=== PATIENT | male | born 1930 | race Hispanic/Latino ===

== ENCOUNTER 2017-06-19 18:50 | Emergency (ER) | payer MEDICARE ==
[2017-06-19] MEDS ORDERED: Proparacaine 0.5% Opth 15 ML BOT ONE (19:22)
[2017-06-19] MEDS ORDERED: Fluorescein Opthalmic Strip ONE (19:22)
--- OUTSIDE RECORDS SUMMARY | 2017-06-20 23:36 | XMS | Clinical Summary ---
:1930 Author Organization [facility] Address [address] [place] [address] Phone Care Team Providers Name Role Phone , Primary Care Provider Unavailable Allergies Not on File Current Medications Not on file Active Problems Not on file Social History Tobacco Use Types Packs/Day Years Used Date Never Assessed Sex Assigned at Date Recorded Not on file Last Filed Vital Signs Not on file Plan of Treatment Not on file Results Not on filefrom Last 3 Months
== END 2017-06-19 19:41 | disposition home or self-care (01) ==
LOC: ERS 18:50
DX: S00.83XA Contusion of other part of head, initial encounter (principal); H11.32 Conjunctival hemorrhage, left eye; I11.0 Hypertensive heart disease with heart failure; I50.9 Heart failure, unspecified; E11.9 Type 2 diabetes mellitus without complications; E78.5 Hyperlipidemia, unspecified; Z79.84 Long term (current) use of oral hypoglycemic drugs; Z79.82 Long term (current) use of aspirin; Z79.899 Other long term (current) drug therapy; X58.XXXA Exposure to other specified factors, initial encounter
CPT/HCPCS: 99282

== ENCOUNTER 2017-07-10 04:00 | Inpatient (IN) | payer MEDICARE ==
--- OUTSIDE RECORDS SUMMARY | 2017-07-10 04:03 | XMS | Clinical Summary ---
:1930 Author Organization [facility] Address [address] [place] [address] Phone Care Team Providers Name Role Phone [...]
[2017-07-10 04:56] LABS: #Lymphocytes 1.1 thou/uL (1.20-3.40); #Monocytes 0.4 thou/uL (0.11-0.59); #Neutrophils 5.4 thou/uL (1.40-6.50); %Basophils 0.7 % (0.0-1.0); %Eosinophils 0.6 % (0.0-10.0); %Lymphocytes 15.1 % (21.0-51.0); %Monocytes 6.1 % (0.0-10.0); Hematocrit 35.1 % (42.0-52.0); Mean Platelet Volume 7.7 fL (7.4-10.4); Red Blood Cell (RBC) Count 3.54 mill/uL (4.70-6.10)
[2017-07-10 05:01] LABS: Prothrombin Time 14.3 SEC (12.0-14.7)
[2017-07-10 05:14] LABS: Lactic Acid - Sepsis 1.3 mmol/L (0.5-2.2)
[2017-07-10 05:21] LABS: ALT (SGPT) 19 U/L (8-55); AST (SGOT) 25 U/L (5-34); Alkaline Phosphatase 73 U/L (40-150); Anion Gap 11 mmol/L (10-20); BUN (Urea Nitrogen) 21 mg/dL (8.4-25.7); Bilirubin, Total 0.4 mg/dL (0.2-1.2); CK (CPK) 98 U/L (30-200); Calc. Creatinine Clearance 0 mL/min (70-130); Calcium 8.3 mg/dL (7.8-10.44); Carbon Dioxide 25 mmol/L (23-31); Chloride 105 mmol/L (98-107); Estimated GFR-MDRD Greater than 90; Globulin 3.3 g/dL (2.4-3.5); Magnesium 1.2 mg/dL (1.6-2.6); Protein, Total 6.1 g/dL (5.8-8.1)
[2017-07-10 05:24] LABS: Troponin I Less than 0.010 ng/mL (< 0.028)
[2017-07-10 05:33] LABS: Anion Gap 7 mmol/L (-14-95); T. Carbon Dioxide 25.9 mmol/L (1.0-85.0); pH (Venous) 7.375 (7.35-7.45); vO2 Saturation-calc 95.7 % (0.0-100.0)
[2017-07-10 05:39] LABS: Bilirubin Negative (Negative); Blood, Urine Negative (Negative); Glucose, Urine (Dipstick) Negative (Negative); Ketone, Urine Negative (Negative); Nitrite Negative (Negative); Protein, Urine (Dipstick) 30 mg/dL (Neg-Trace); Urobilinogen 0.2 mg/dL (0.2-1.0)
[2017-07-10 05:41] LABS: Bacteria/HPF None Seen HPF (None Seen); Hyaline Casts/LPF 0-3 HYALINE CAST LPF (0-3 Hyaline); RBC/HPF 0-3 HPF (0-3); Squamous Epithelial None Seen HPF (0-3); WBC/HPF 0-3 HPF (0-3)
[2017-07-10] MEDS ORDERED: Nitroglycerin 0.4 MG TAB (25 Tab Bottle) ONE (05:47)
[2017-07-10] MEDS ORDERED: Furosemide 40 MG/4 ML VIAL ONE (05:47)
[2017-07-10 05:50] LABS: Amphetamine Not Detected (NotDetected); Methadone Not Detected (NotDetected); Methamphetamine Not Detected (NotDetected)
[2017-07-10] MEDS ORDERED: Magnesium Sulfate 2 GM/100 ML BAG ONE (06:50)
[2017-07-10] MEDS ORDERED: Dextrose 50% Abboject 50 ML SYRINGE SLOW IVP PRN (07:29)
[2017-07-10] MEDS ORDERED: Dextrose 5% in Water 1,000 ML IV PRN (07:29)
--- NOTE | 2017-07-10 07:54 | CT ---
PRELIMINARY REPORT/[facility]/EMERGENCY AFTER HOURS PROCEDURE: EXAM: CT Head Without Intravenous Contrast EXAM DATE/TIME: 07/10/2017 4:53 AM CLINICAL HISTORY: 87 years old, male; Signs and symptoms; Altered mental status/memory loss; Confusion or disorientatio n; Patient HX: AMS TECHNIQUE: Axial computed tomography images of the head/brain without intravenous contrast. COMPARISON: No relevant prior studies available. FINDINGS: Brain: Decreased attenuation of the supratentorial white matter is likely secondary to chronic microv ascular ischemia. No hemorrhage. Ventricles: Ventricular and subarachnoid spaces are age appropriate. Bones/joints: Unremarkable. No acute fracture. Soft tissues: Unremarkable. Vasculature: Intracranial vascular calcification. Sinuses: Nonspecific sphenoid sinus secretions. Mastoid air cells: Unremarkable as visualized. No mastoid effusion. IMPRESSION: No acute intracranial abnormality. Thank you for allowing us to participate in the care of your patient. Dictated and Authenticated by: Corey Schwab MD 07/10/2017 5:07 AM Central Time ([place] & [place]) FINAL REPORT HEAD CT WITHOUT CONTRAST: DATE: 07/10/17. COMPARISON: 09/19/16. HISTORY: Altered mental status, confusion, and memory loss. FINDINGS: I agree with the preliminary [facility] report. There is mild mucosal thickening of the sphenoid sinus on the right. There is atherosclerotic calcification of the cavernous carotid arteries. No displaced calvarial fracture. There is moderate diffuse cerebral volume loss with associated prominence of the CSF-containing spaces. No intracranial hemorrhage, midline shift, or mass effect. IMPRESSION: No acute findings - stable head CT. POS: [facility]
[2017-07-10] MEDS ORDERED: Acetaminophen 325 MG TAB PO PRN (08:04)
[2017-07-10] MEDS ORDERED: Ondansetron ODT 4 MG TAB PO PRN (08:04)
[2017-07-10] MEDS ORDERED: Ondansetron HCl/PF 4 MG/2 ML Vial IVP PRN (08:04)
[2017-07-10 08:05] LABS: Troponin I 0.013 ng/mL (< 0.028)
[2017-07-10] MEDS ORDERED: hydrALAZINE 20 MG/ML VIAL SLOW IVP PRN (08:06)
[2017-07-10] MEDS ORDERED: Levothyroxine Sodium 100 MCG TAB PO SCH (08:15)
--- NOTE | 2017-07-10 08:22 | RAD ---
PORTABLE CHEST: History: Cough. FINDINGS: Heart size appears borderline in size. There is a pacemaker present. Surgical clips are seen overlyin g the right hilum which is slightly prominent. There is elevation of the right hemidiaphragm. Post-op erative changes of the right ribs are seen. No acute process noted. IMPRESSION: Post-operative change of the right lung. POS: [facility]
[2017-07-10] MEDS: Lisinopril 20 MG TAB PO SCH (08:35)
[2017-07-10] MEDS: Dutasteride 0.5 MG CAP PO SCH (08:36)
[2017-07-10] MEDS: Magnesium Oxide 400 MG TAB PO SCH (08:36)
[2017-07-10] MEDS: Clopidogrel Bisulfate 75 MG TAB PO SCH (08:36)
[2017-07-10] MEDS: cloNIDine 0.2 MG TAB PO SCH ×2 (08:36→20:34)
[2017-07-10] MEDS: Enoxaparin Sodium 40 MG/0.4 ML SYRINGE SC SCH (08:37)
[2017-07-10 08:50] VITALS: BMI 21.9
[2017-07-10] MEDS ORDERED: NITROGLYCERIN TD SCH (09:00)
--- NOTE | 2017-07-10 10:49 | HP-2 ---
DATE OF ADMISSION: 07/10/2017 CODE STATUS: DNR. PRIMARY CARE PHYSICIAN: [facility]. ATTENDING: Dr. Cabrera. RESIDENT: Dr. Smith. HISTORIAN: Self daughter and granddaughter. CHIEF COMPLAINT: Auditory and visual hallucinations. HISTORY OF PRESENT ILLNESS: This is a 87-year-old male with past medical history of diabetes, hypert ension, hyperlipidemia, hypothyroidism, prostate cancer, heart failure with preserved ejection fracti on, who presents to the ED because he has been having hallucinations for the past 8 months that are a uditory and visual, but lately they have been getting worse. Last night, he got scared because he sa id they were chasing him. Last week, he went to see a doctor and was diagnosed with borderline depre ssion and started on sertraline. He has been told he may have the beginning stages of dementia. He has also had a productive cough for about a month. Denies any shortness of breath, PND, orthopnea, f ever, or chills. He has had increased edema in his lower extremity. In the ER, he was given Lasix a nd nitro. PAST MEDICAL HISTORY: 1. Diabetes type 2. 2. Hypertension. 3. Hyperlipidemia. 4. Hypothyroidism. 5. Heart failure with preserved ejection fraction. Most recent echo showed ejection fraction of 60% -65% and grade 1/3 diastolic dysfunction. 6. Prostate cancer. PAST SURGICAL HISTORY: 1. Pacemaker placement. 2. Left lower extremity amputation. ALLERGIES: No known drug allergies. MEDICATIONS: 1. Synthroid 75 mcg daily. 2. Dutasteride 0.5 mg daily. 3. Lisinopril 40 mg daily. 4. Lasix 20 mg daily. 5. Metoprolol ER 50 mg daily. 6. Clopidogrel 75 mg daily. 7. Clonidine 0.2 mg b.i.d. 8. Aspirin 81 mg daily. 9. Atorvastatin 40 mg at bedtime. 10. Metformin 1000 mg b.i.d. 11. Sertraline 25 mg daily. FAMILY HISTORY: Brother, diabetes. Sister, diabetes. SOCIAL HISTORY: He used to smoke one-third pack per day for 20 years, quit 3 years ago. Denies alco hol or drug use. Lives with daughter. REVIEW OF SYSTEMS: General: Denies fever, chills, weight changes. ENT: Denies rhinorrhea or sore throat. Respiratory: Reports cough. Denies shortness of breath. Cardiovascular: Negative for chest pain. Positive for edema. Gastrointestinal: Negative for nause a, vomiting, abdominal pain. Genitourinary: Negative for dysuria, polyuria. Skin: Negative for rashes or lesions. Musculoskeletal: Positive for pain in his amputated leg. N egative for tenderness. Neurologic: Negative for weakness or numbness. Psychiatric: Negative for anxiety, positive for depression. PHYSICAL EXAMINATION: VITAL SIGNS: Blood pressure 126/54, pulse 66, respiratory rate 14, temperature 97.4, pulse ox 92% on room air, current weight 81.65 kilograms. GENERAL: Alert and oriented x3 in no acute distress, well-nourished, appropriately interactive. EYES: Pupils equal, round, reactive to light. Extraocular muscles intact. Conjunctiva within martha l limits. ENT: Nasal mucosa and oropharynx within normal limits. NECK: Supple, no lymphadenopathy, no thyromegaly. CARDIOVASCULAR: Regular rate and rhythm, 3/6 systolic murmur loudest over the right second intercost al space. No gallops, 2+ radial and pedal pulses. RESPIRATORY: Normal effort, no retractions. Crackles in bilateral lung bases. SKIN: Warm, dry. No cyanosis or lesions. ABDOMEN: Soft, nontender to palpation, normoactive bowel sounds. No mass or distention. EXTREMITIES: No clubbing, cyanosis, 2+ pitting edema above the right knee. MUSCULOSKELETAL: Structure and tone within normal limits. Left knee AKA. NEUROLOGICAL: No focal deficits. Sensation within normal limits. GCS 15. PSYCHIATRIC: Appropriate. LABORATORY DATA: WBC 7.0, hemoglobin 11.1, hematocrit 34.1, platelets 371. Sodium 137, potassium 4. 1, chloride 105, CO2 25, BUN 21, creatinine 0.78, GFR greater than 90, glucose 149, calcium 8.3, tota l protein 6.1, albumin 2.8, total bilirubin 0.4, AST 25, ALT 19, alkaline phosphatase 73. PT 14.3, I NR 1.1, lactate 1.3, magnesium 1.2. BNP 1214.7, TSH 17.6084, CK 98, CK-MB 5.8, troponin less than 0. 01. Urinalysis had 30 protein, otherwise negative. IMAGING: Brain CT showed chronic microvascular changes. ASSESSMENT AND PLAN: This is an 87-year-old male who presents with: 1. Acute congestive heart failure exacerbation, history of diastolic dysfunction. Per echo, elevat ed BNP of 1200. We will repeat echo. We will diurese with Lasix. Strict I's and O's, daily weights, and fluid restrict. We will continue lisinopril and metoprolol. 2. Hallucinations, could be metabolic secondary to hypothyroidism versus dementia versus depression. We will monitor. We will do case management consult for potential placement for stabilization and continue sertraline. 3. Hypothyroidism, uncontrolled. TSH was 17.6. We will increase Synthroid dose. Recheck TSH in 6 weeks. 4. Hypomagnesemia. Magnesium was 1.0, we will replete and recheck in a.m. 5. Chronic macrocytic anemia. B12 and folate were checked in 08/2016 and were within normal limits, likely chronic disease. We will monitor. 6. Moderate protein calorie malnutrition. We will give protein supplementation. 7. Type 2 diabetes mellitus. Continue home medications. Accu-Cheks a.c. and at bedtime. Consiste nt carbohydrate diet. 8. Hypertension. The patient's blood pressure got significantly elevated to 220s once up to the kristan or, the patient missed his nighttime clonidine dose. We will give nitro paste and hydralazine p.r.n. We will continue home medications. 9. Hyperlipidemia. Continue home medications. 10. Prostate cancer. Continue home medications. 11. Venous thromboembolism prophylaxis. Lovenox. DISPOSITION: Admit to tele. Symptomatic medications will be provided. History and physical exam as well as management discussed with Dr. Cabrera.
[2017-07-10 12:15] LABS: Troponin I 0.011 ng/mL (< 0.028)
[2017-07-10] MEDS: Furosemide 20 MG/2 ML VIAL SLOW IVP SCH (14:31)
--- NOTE | 2017-07-10 15:35 | PDOC.EVN ---
Attending Addendum - Attending Addendum I personally evaluated the patient and discussed the management with Dr. Smith. I agree with the History, Examination, Assessment and Plan documented in her H& P with any addition or exceptions noted below. Patient with history of diastolic CHF admitted here with elevated BNP and XR findings concerning for fluid overload. Will begin treatment for exacerbation of CHF with stict I/O, fluid restriction, and diuretic therapy. There is concern he may not be taking his medications appropriately. We will work to arrange for assistance of discharge. Patient also notes 8 month history of self aware auditory/visual hallucinations. It is possible this is related to some underlying dementia, but will identify organic causes. He has uncontrolled hypothyroidism that will need to be corrected. He has no evidence of neoplasm or neurologic disease, and no evidence of long ago trauma, toxic ingestion, stroke or seizure. Will repeat Echo as has been near 1 year and has likely worsened if medically noncompliant.
[2017-07-10] MEDS: metFORMIN 500 MG TAB PO SCH (16:58)
[2017-07-10] MEDS: Atorvastatin Calcium 40 MG TAB PO SCH (20:35)
[2017-07-11 05:18] LABS: #Lymphocytes 1.8 thou/uL (1.20-3.40); #Monocytes 0.6 thou/uL (0.11-0.59); #Neutrophils 6.3 thou/uL (1.40-6.50); %Basophils 0.2 % (0.0-1.0); %Eosinophils 0.4 % (0.0-10.0); %Lymphocytes 20.8 % (21.0-51.0); %Monocytes 6.4 % (0.0-10.0); Hematocrit 35.1 % (42.0-52.0); Mean Platelet Volume 8.2 fL (7.4-10.4); Red Blood Cell (RBC) Count 3.56 mill/uL (4.70-6.10); White Blood Cell (WBC) Count 8.8 thou/uL (4.8-10.8)
[2017-07-11 05:28] LABS: Anion Gap 9 mmol/L (10-20); BUN (Urea Nitrogen) 21 mg/dL (8.4-25.7); Calc. Creatinine Clearance 60 mL/min (70-130); Calcium 7.8 mg/dL (7.8-10.44); Carbon Dioxide 24 mmol/L (23-31); Chloride 104 mmol/L (98-107); Estimated GFR-MDRD Greater than 90; Magnesium 1.5 mg/dL (1.6-2.6)
[2017-07-11] MEDS: Levothyroxine Sodium 100 MCG TAB PO SCH (05:51)
[2017-07-11] MEDS: Furosemide 20 MG/2 ML VIAL SLOW IVP SCH (05:55)
[2017-07-11] MEDS: Lisinopril 20 MG TAB PO SCH (08:01)
[2017-07-11] MEDS: metFORMIN 500 MG TAB PO SCH ×2 (08:01→16:48)
[2017-07-11] MEDS: Magnesium Oxide 400 MG TAB PO SCH (08:02)
[2017-07-11] MEDS: Dutasteride 0.5 MG CAP PO SCH (08:02)
[2017-07-11] MEDS: cloNIDine 0.2 MG TAB PO SCH ×2 (08:02→22:31)
[2017-07-11] MEDS: Clopidogrel Bisulfate 75 MG TAB PO SCH (08:02)
[2017-07-11] MEDS: Enoxaparin Sodium 40 MG/0.4 ML SYRINGE SC SCH (08:03)
--- NOTE | 2017-07-11 08:35 | PDOC.FM ---
- Subjective Subjective: Hospital day 2. No acute events overnight. Pt reports he is feeling better. Throughout day only had intake documented, although per nurse, prior care team reports use of bedside urinal. - Objective Vital Signs & Weight: Vital Signs (12 hours) Temp Pulse Resp BP BP Pulse Ox 07/11/17 07:10 98.3 F 70 16 142/64 H 95 07/11/17 03:41 98.6 F 62 12 158/75 H 98 07/11/17 01:17 63 07/10/17 23:36 97.7 F 63 14 188/75 H 98 07/10/17 20:40 97.9 F 61 12 97 07/10/17 20:34 166/70 H Weight Weight 58.649 kg I&O: 07/10/17 07/11/17 07/12/17 06:59 06:59 06:59 Intake Total 1402 Balance 1402 Result Diagrams: 07/11/17 04:59 07/11/17 04:59 <Ari Matthews - Last Filed: 07/11/17 08:33> - Objective Vital Signs & Weight: Vital Signs (12 hours) Temp Pulse Resp BP Pulse Ox 07/11/17 08:00 98.3 F 70 16 07/11/17 07:10 98.3 F 70 16 142/64 H 95 07/11/17 03:41 98.6 F 62 12 158/75 H 98 07/11/17 01:17 63 07/10/17 23:36 97.7 F 63 14 188/75 H 98 Weight Weight 58.649 kg I&O: 07/10/17 07/11/17 07/12/17 06:59 06:59 06:59 Intake Total 1402 Balance 1402 Result Diagrams: 07/11/17 04:59 07/11/17 04:59 <Sulaiman Cabrera - Last Filed: 07/11/17 11:13> Phys Exam - Physical Examination Constitutional: NAD HEENT: PERRLA, moist MMs, sclera anicteric Neck: no nodes Respiratory: no wheezing, no rhonchi scattered rales throughout Cardiovascular: RRR, no rub 2-3/6 HARJIT Gastrointestinal: soft, non-tender, no distention, positive bowel sounds Musculoskeletal: no edema, pulses present LLE amputation Neurological: non-focal, normal sensation, moves all 4 limbs Psychiatric: normal affect <Ari Matthews - Last Filed: 07/11/17 08:33> Dx/Plan (1) CHF (congestive heart failure) Code(s): I50.9 - HEART FAILURE, UNSPECIFIED Status: Acute (2) Hypothyroid Code(s): E03.9 - HYPOTHYROIDISM, UNSPECIFIED Status: Acute (3) HLD (hyperlipidemia) Code(s): E78.5 - HYPERLIPIDEMIA, UNSPECIFIED Status: Acute (4) HTN (hypertension) Code(s): I10 - ESSENTIAL (PRIMARY) HYPERTENSION Status: Acute (5) PVD (peripheral vascular disease) Code(s): I73.9 - PERIPHERAL VASCULAR DISEASE, UNSPECIFIED Status: Acute - Plan Plan: no op documented and only one weight, pt will be placed on strict Is/Os, daily weights continue IV lasix, monitor is/os, continue metoprolol and elbert, echo pending, consider spirinolactone hallucinations possibly 2/2 hypothyroid vs dmentia/depression. r/o organic cause first, continue synthroid at current dose, will need op f/u hydralizine prn for elevated pressures, continue home medications for htn, hld <Ari Matthews - Last Filed: 07/11/17 08:33> Attending Addendum - Attending Addendum I personally evaluated the patient and discussed the management with Dr. Matthews. I agree with the History, Examination, Assessment and Plan documented above with any addition or exceptions noted below. Patient feeling well this morning and has no evidence of hypoxia or volume overload. We will switch him to PO lasix today. His echo is relatively unchanged from previous and is consistent with HFpEF. His worsening could be due in part to poor med compliance. We have not found any evidence of major infection or other insult that would result in hallucinations. Currently, it is likely due to undertreated hypothyroidism or underlying dementia. We have discussed with him that this is not a quick fix. Fortunately, he is aware of his hallucinations and they are non violent and do not promote self harm. Will watch today and more closely monitor his I/O status with Lasix 20mg. Possible discharge tomorrow. Will likely need services to aid in med compliance. <Sulaiman Cabrera - Last Filed: 07/11/17 11:13>
[2017-07-11] MEDS ORDERED: FLU VACC TS2017-18 (>65YR) 0.5 ML SYRINGE IM ONE (09:00)
[2017-07-11] MEDS: Nitroglycerin 0.1mg/Hour PATCH TOP SCH (10:12)
[2017-07-11] MEDS: Furosemide 40 MG TAB PO SCH (13:39)
[2017-07-11] MEDS ORDERED: Dextrose 5% in Water 1,000 ML IV PRN (16:46)
[2017-07-11] MEDS ORDERED: HumaLOG 300 UNITS/3 ML VIAL SC PRN ×2 (16:46)
[2017-07-11] MEDS ORDERED: Dextrose 50% Abboject 50 ML SYRINGE IVP PRN (16:46)
[2017-07-11] MEDS: Magnesium Chloride 64 MG TAB PO SCH (22:31)
[2017-07-11] MEDS: Atorvastatin Calcium 40 MG TAB PO SCH (22:31)
[2017-07-12] MEDS: Levothyroxine Sodium 100 MCG TAB PO SCH (05:32)
--- NOTE | 2017-07-12 05:41 | PDOC.FM ---
- Subjective Subjective: No complaints this morning. States he urinated several times last night. Granddaughter is in the room and states she and his railroad baggage porter (his daughter) would like for him to go to a short stay facility. - Objective MAR Reviewed: Yes Vital Signs & Weight: Vital Signs (12 hours) Temp Pulse Resp BP BP Pulse Ox 07/12/17 04:00 97.9 F 62 16 154/68 H 97 07/12/17 02:05 96 07/12/17 00:06 98.5 F 64 14 150/60 H 96 07/11/17 22:31 199/93 H 07/11/17 20:00 98.5 F 62 16 159/65 H 98 Weight Weight 58.649 kg I&O: 07/10/17 07/11/17 07/12/17 06:59 06:59 06:59 Intake Total 1402 600 Output Total 400 Balance 1402 200 Result Diagrams: 07/12/17 05:28 07/12/17 05:28 <Christiana Wan - Last Filed: 07/12/17 09:09> - Objective Vital Signs & Weight: Vital Signs (12 hours) Temp Pulse Resp BP BP Pulse Ox 07/12/17 11:15 99.1 F 60 18 113/52 L 97 07/12/17 07:37 97.7 F 60 16 07/12/17 07:18 97.7 F 60 16 158/64 H 97 07/12/17 04:00 97.9 F 62 16 154/68 H 97 Weight Weight 56.88 kg I&O: 07/11/17 07/12/17 07/13/17 06:59 06:59 06:59 Intake Total 1402 1080 360 Output Total 400 Balance 1402 680 360 Result Diagrams: 07/12/17 05:28 07/12/17 05:28 <Sulaiman Cabrera - Last Filed: 07/12/17 14:31> Phys Exam - Physical Examination Constitutional: NAD HEENT: PERRLA, moist MMs, sclera anicteric Respiratory: no wheezing, no rales, clear to auscultation bilateral Cardiovascular: RRR systolic murmur 2/6 Gastrointestinal: soft, non-tender, no distention Musculoskeletal: no edema, pulses present Neurological: non-focal, normal sensation Psychiatric: normal affect, A&O x 3 <Christiana Wan - Last Filed: 07/12/17 09:09> Dx/Plan (1) Diastolic congestive heart failure with preserved left ventricular function , NYHA class 2 Code(s): I50.30 - UNSPECIFIED DIASTOLIC (CONGESTIVE) HEART FAILURE Status: Acute (2) Hypothyroid Code(s): E03.9 - HYPOTHYROIDISM, UNSPECIFIED Status: Acute (3) PVD (peripheral vascular disease) Code(s): I73.9 - PERIPHERAL VASCULAR DISEASE, UNSPECIFIED Status: Acute - Plan Plan: 87 yo male with pmhx of CHF, with preserved ejection fraction, initially presented in volume overload admitted for an acute CHF exacerbation, now improved. 1.)CHF, preserved ejection fraction: improved, euvolemic Continue PO lasix of 40mg BID Continue metoprolol and lisinopril Consider spironolactone in outpatient setting echo unchanged from prior 2/6 systolic murmur 2.)Hypothyroidism, uncontrolled with persistent visual hallucinations: Synthroid increased to 100mcg daily Recommend rechecking TSH in outpatient setting in 4-6 weeks 3.) HLD, controlled. Continue atorvastatin 4.)HTN, controlled in the 140s-150s systolic Continue home meds Dispo: DC today with HH, or if approved for short stay can possiby dc there; Will talk with CM today. <Christiana Wan - Last Filed: 07/12/17 09:09> Attending Addendum - Attending Addendum I personally evaluated the patient and discussed the management with Dr. Karla Lazo. I agree with the History, Examination, Assessment and Plan documented above with any addition or exceptions noted below. Patient doing significantly improved from CHF standpoint. Back on home meds. He is to continue on higher dose of levothyroxine for uncontrolled hypothyroidism that he will need monitoring in outpatient setting. Hallucinations unchanged and thought to be due to hypothyroid or underlying dementia. Family would like placement for short term and we will work on that. If unavailable, he is safe to go home with HH and PT to help with medication and conditioning. <Sulaiman Cabrera - Last Filed: 07/12/17 14:31>
[2017-07-12 05:44] LABS: #Lymphocytes 1.3 thou/uL (1.20-3.40); #Monocytes 0.5 thou/uL (0.11-0.59); #Neutrophils 3.7 thou/uL (1.40-6.50); %Basophils 0.4 % (0.0-1.0); %Eosinophils 0.6 % (0.0-10.0); %Lymphocytes 22.6 % (21.0-51.0); %Monocytes 8.7 % (0.0-10.0); Mean Platelet Volume 7.9 fL (7.4-10.4); Red Blood Cell (RBC) Count 3.18 mill/uL (4.70-6.10); White Blood Cell (WBC) Count 5.5 thou/uL (4.8-10.8)
[2017-07-12 05:58] LABS: Anion Gap 7 mmol/L (10-20); BUN (Urea Nitrogen) 26 mg/dL (8.4-25.7); Calc. Creatinine Clearance 49 mL/min (70-130); Calcium 7.8 mg/dL (7.8-10.44); Carbon Dioxide 30 mmol/L (23-31); Chloride 101 mmol/L (98-107); Estimated GFR-MDRD 84; Magnesium 1.2 mg/dL (1.6-2.6)
[2017-07-12] MEDS: metFORMIN 500 MG TAB PO SCH ×2 (09:06→16:40)
[2017-07-12] MEDS: cloNIDine 0.2 MG TAB PO SCH ×2 (09:06→21:29)
[2017-07-12] MEDS: Enoxaparin Sodium 40 MG/0.4 ML SYRINGE SC SCH (09:07)
[2017-07-12] MEDS: Dutasteride 0.5 MG CAP PO SCH (09:07)
[2017-07-12] MEDS: Furosemide 40 MG TAB PO SCH ×2 (09:07→13:55)
[2017-07-12] MEDS: Clopidogrel Bisulfate 75 MG TAB PO SCH (09:07)
[2017-07-12] MEDS: Lisinopril 20 MG TAB PO SCH (09:07)
[2017-07-12] MEDS: Magnesium Oxide 400 MG TAB PO SCH (09:07)
[2017-07-12] MEDS: Nitroglycerin 0.1mg/Hour PATCH TOP SCH (09:08)
[2017-07-12] MEDS: Magnesium Chloride 64 MG TAB PO SCH ×2 (09:10→21:00)
[2017-07-12] MEDS: Atorvastatin Calcium 40 MG TAB PO SCH (20:59)
[2017-07-13 05:11] LABS: #Lymphocytes 1.5 thou/uL (1.20-3.40); #Monocytes 0.6 thou/uL (0.11-0.59); %Basophils 0.3 % (0.0-1.0); %Eosinophils 0.8 % (0.0-10.0); %Lymphocytes 24.1 % (21.0-51.0); %Monocytes 9.3 % (0.0-10.0); Hematocrit 32.3 % (42.0-52.0); Mean Platelet Volume 8.1 fL (7.4-10.4); Red Blood Cell (RBC) Count 3.31 mill/uL (4.70-6.10)
[2017-07-13 05:26] LABS: Anion Gap 10 mmol/L (10-20); BUN (Urea Nitrogen) 28 mg/dL (8.4-25.7); Calc. Creatinine Clearance 47 mL/min (70-130); Calcium 7.8 mg/dL (7.8-10.44); Carbon Dioxide 31 mmol/L (23-31); Chloride 98 mmol/L (98-107); Estimated GFR-MDRD 83
[2017-07-13] MEDS: Levothyroxine Sodium 100 MCG TAB PO SCH (05:31)
--- NOTE | 2017-07-13 07:09 | PDOC.FM ---
- Subjective Subjective: Pt up in wheelchair. Denies any pain. Denies any fever or chills. No acute events overnight. - Objective MAR Reviewed: Yes Vital Signs & Weight: Vital Signs (12 hours) Temp Pulse Resp BP BP BP Pulse Ox 07/13/17 05:36 98.8 F 64 18 159/58 H 94 L 07/13/17 00:35 98.0 F 70 18 137/61 94 L 07/12/17 21:29 109/54 L 07/12/17 21:00 97.8 F 71 18 96 07/12/17 20:30 97.8 F 71 18 109/54 L 96 Weight Weight 56.88 kg I&O: 07/12/17 07/13/17 07/14/17 06:59 06:59 06:59 Intake Total 1080 840 Output Total 400 Balance 680 840 Result Diagrams: 07/13/17 04:48 07/13/17 04:48 <Bang Jones - Last Filed: 07/13/17 07:09> - Objective Vital Signs & Weight: Vital Signs (12 hours) Temp Pulse Resp BP BP BP Pulse Ox 07/13/17 08:48 157/63 H 07/13/17 08:46 157/63 H 07/13/17 08:00 97.7 F 75 14 98 07/13/17 07:45 97.7 F 75 14 157/63 H 98 07/13/17 05:36 98.8 F 64 18 159/58 H 94 L 07/13/17 00:35 98.0 F 70 18 137/61 94 L Weight Weight 56.88 kg I&O: 07/12/17 07/13/17 07/14/17 06:59 06:59 06:59 Intake Total 1080 840 Output Total 400 Balance 680 840 Result Diagrams: 07/13/17 04:48 07/13/17 04:48 <Sulaiman Cabrera - Last Filed: 07/13/17 11:36> Phys Exam - Physical Examination Constitutional: NAD HEENT: moist MMs, oral pharynx no lesions Neck: no nodes, supple, full ROM Respiratory: no wheezing, no rales, no rhonchi, clear to auscultation bilateral Cardiovascular: RRR, no rub systolic murmur noted Gastrointestinal: soft, non-tender, no distention Musculoskeletal: no edema, pulses present Psychiatric: normal affect Skin: no rash, normal turgor <Bang Jones - Last Filed: 07/13/17 07:09> Dx/Plan (1) Diastolic congestive heart failure with preserved left ventricular function , NYHA class 2 Code(s): I50.30 - UNSPECIFIED DIASTOLIC (CONGESTIVE) HEART FAILURE Status: Acute (2) Hypothyroid Code(s): E03.9 - HYPOTHYROIDISM, UNSPECIFIED Status: Acute (3) HTN (hypertension) Code(s): I10 - ESSENTIAL (PRIMARY) HYPERTENSION Status: Acute (4) HLD (hyperlipidemia) Code(s): E78.5 - HYPERLIPIDEMIA, UNSPECIFIED Status: Acute - Plan Plan: 87 yo male with pmhx of CHF, with preserved ejection fraction, initially presented in volume overload admitted for an acute CHF exacerbation, now improved. 1.)CHF, preserved ejection fraction: improved, euvolemic Continue PO lasix of 40mg BID Continue metoprolol and lisinopril echo unchanged from prior 2/6 systolic murmur No sign of acute fluid overload 2.)Hypothyroidism, uncontrolled with persistent visual hallucinations: Synthroid increased to 100mcg daily Recommend rechecking TSH in outpatient setting in 4-6 weeks 3.) HLD, controlled. Continue atorvastatin 4.)HTN, controlled in the 140s-150s systolic Continue home meds Discussion was had with family last night. The daughter he lives with is leaving the country for 10 days and the other daughter doesn't think she can take care of him at home. Will need to have further discussion with family. But it may sound like half-way placement may be the best option Case managment consulted to help with placement <Bang Jones - Last Filed: 07/13/17 07:09> Attending Addendum - Attending Addendum I personally evaluated the patient and discussed the management with Dr. Jones. I agree with the History, Examination, Assessment and Plan documented above with any addition or exceptions noted below. Patient continues to do well. Sats and oxygenation are at baseline and no evidence of volume overload. His family has agreed to take him home and will follow up with short term rehab as outpatient. His hallucinations are stable and expected to improve with improved treatment of hypothyroidism. Discharging home today. <Sulaiman Cabrera - Last Filed: 07/13/17 11:36>
[2017-07-13] MEDS: metFORMIN 500 MG TAB PO SCH (08:45)
[2017-07-13] MEDS: cloNIDine 0.2 MG TAB PO SCH (08:46)
[2017-07-13] MEDS: Enoxaparin Sodium 40 MG/0.4 ML SYRINGE SC SCH (08:47)
[2017-07-13] MEDS: Dutasteride 0.5 MG CAP PO SCH (08:47)
[2017-07-13] MEDS: Clopidogrel Bisulfate 75 MG TAB PO SCH (08:47)
[2017-07-13] MEDS: Lisinopril 20 MG TAB PO SCH (08:48)
[2017-07-13] MEDS: Furosemide 40 MG TAB PO SCH (08:48)
[2017-07-13] MEDS: Magnesium Chloride 64 MG TAB PO SCH (08:48)
[2017-07-13] MEDS: Nitroglycerin 0.1mg/Hour PATCH TOP SCH ×2 (08:49→08:52)
[2017-07-13] MEDS: Magnesium Oxide 400 MG TAB PO SCH (08:49)
[2017-07-13 11:57] VITALS: BP 99/41; TEMP 97.5
== END 2017-07-13 13:49 | disposition home health service (06) | DRG 292 ==
LOC: ERS 04:00 → 2SE 06:25
PROVIDERS: ADMIT Emergency Medicine; ATTEND Emergency Medicine
DX: I11.0 Hypertensive heart disease with heart failure (principal); A52.17 General paresis; E44.0 Moderate protein-calorie malnutrition; E11.9 Type 2 diabetes mellitus without complications; E83.42 Hypomagnesemia; D53.9 Nutritional anemia, unspecified; E03.9 Hypothyroidism, unspecified; I50.33 Acute on chronic diastolic (congestive) heart failure; E78.5 Hyperlipidemia, unspecified; I73.9 Peripheral vascular disease, unspecified; Z95.0 Presence of cardiac pacemaker; Z79.84 Long term (current) use of oral hypoglycemic drugs; Z79.82 Long term (current) use of aspirin; Z87.891 Personal history of nicotine dependence; Z85.46 Personal history of malignant neoplasm of prostate; Z68.21 Body mass index [BMI] 21.0-21.9, adult
CPT/HCPCS: 36415; 36416; 70450; 71010; 80048; 80053; 80306; 81003; 81015; 82330; 82553; 82803; 83605; 83735; 83880; 84439; 84443; 84481; 84484; 85025; 85610; 93005; 93306; 93798; 96365; 96375; A4216; G8978-GP-CI; G8979-GP-CI; G8980-GP-CI; J0360; J1650; J1940; J3475

== ENCOUNTER 2017-09-20 20:22 | Emergency (ER) | payer MEDICARE ==
[2017-09-20 21:12] LABS: #Lymphocytes 1.1 thou/uL (1.20-3.40); #Monocytes 0.5 thou/uL (0.11-0.59); #Neutrophils 6.4 thou/uL (1.40-6.50); %Basophils 0.1 % (0.0-1.0); %Eosinophils 0.3 % (0.0-10.0); %Lymphocytes 13.6 % (21.0-51.0); Mean Corpuscular HGB CONC 31.9 g/dL (32.0-36.0); Mean Corpuscular Hemoglobin 31.7 pg (27.0-31.0); Mean Corpuscular Volume 99.3 fl (80.0-94.0); Mean Platelet Volume 8.4 fL (7.4-10.4); Platelet Count 265 thou/uL (130-400); RBC Distribution Width 15.4 % (11.5-14.5); Red Blood Cell (RBC) Count 3.16 mill/uL (4.70-6.10)
[2017-09-20 21:32] LABS: Anion Gap 11 mmol/L (10-20); BUN (Urea Nitrogen) 16 mg/dL (8.4-25.7); Calc. Creatinine Clearance 0 mL/min (70-130); Calcium 7.2 mg/dL (7.8-10.44); Carbon Dioxide 21 mmol/L (23-31); Chloride 108 mmol/L (98-107); Estimated GFR-MDRD 89; Glucose 136 mg/dL (83-110); Potassium 4.3 mmol/L (3.5-5.1); Sodium 136 mmol/L (136-145)
--- NOTE | 2017-09-20 22:57 | RAD ---
ONE VIEW CHEST 09/20/17 HISTORY: Hallucinations. Weakness. COMPARISON: 07/10/17 FINDINGS: Portable upright chest demonstrates a left sided transvenous pacemaker, unchanged in position. There is atherosclerosis of the aorta. The heart size is within normal limits. Pulmonary vessels are normal . Minimal blunting of the left costophrenic angle. Right costophrenic angle is clear. Diminished lung volumes, likely due to poor inspiratory effort. No consolidation or mass. No pneumothorax. No osseou s abnormalities. Calcification of the mitral annulus is noted. Stable suture projecting over the righ t hemithorax. IMPRESSION: No acute cardiopulmonary process. Diminished lung volumes, likely due to poor inspiratory effort. POS: [facility]
[2017-09-20 23:05] LABS: Bilirubin Negative (Negative); Blood, Urine Negative (Negative); Clarity CLEAR (Clear); Glucose, Urine (Dipstick) Negative (Negative); Leukocyte Negative (Negative); Nitrite Negative (Negative); Protein, Urine (Dipstick) Negative (Neg-Trace); Specific Gravity, Urine 1.017 (1.002-1.036); pH, Urine 5.5 (5.0-9.0)
--- NOTE | 2017-09-20 23:09 | CT ---
EXAM: NONCONTRAST HEAD CT 09/20/17 HISTORY: Trauma. Increased weakness. Hallucinations. Multiple falls. COMPARISON: 07/10/17 TECHNIQUE: Noncontrast head CT is performed from skull base to skull vertex. FINDINGS: No parenchymal hemorrhage. No extra-axial hematoma. No midline shift. Basilar cisterns are patent. Age appropriate atrophy. Cortical macias-white matter differentiation is preserved. Ventricles and sulci are patent and symmetric. White matter hypodensities due to chronic small vessel ischemic changes are noted. Remote insult invo lving the left subinsular cortex, unchanged. Additional hypodensities in the right lentiform nucleus and left thalamus are noted. Deep macias matter structure calcification/mineralization are identified. Intact calvarium. Cavernous carotid atherosclerosis. Adequate aeration of the sinuses and mastoid air cells. IMPRESSION: No acute intracranial process. POS: [facility]
--- NOTE | 2017-09-20 23:18 | ULT ---
EXAM: TESTICULAR ULTRASOUND 09/20/17 HISTORY: Swelling. New onset pain. COMPARISON: None. TECHNIQUE: Mason scale, color flow, doppler imaging with spectral waveform analysis performed in the left and rig ht testicle. FINDINGS: RIGHT HEMISCROTUM: The right testicle has a homogeneous echotexture. No intratesticular mass. Right testicle measures 2. 7 x 3.8 x 2.8 cm. Epididymis has a normal echotexture measuring 0.5 cm. Moderate right sided hydrocel e. LEFT HEMISCROTUM: Left testicle has a homogeneous echotexture. No intratesticular mass. Left testicle measures 3.1 x 2. 7 x 4.0 cm. Epididymis has a normal echotexture measuring 0.5 cm. Moderate left sided hydrocele. TESTICULAR DOPPLER: Symmetric vascular flow to the left and right testicle. There is left and right scrotal wall thickening. IMPRESSION: 1. Symmetric vascular flow to the testicles. Moderate bilateral hydroceles. 2. Bilateral scrotal wall thickening. POS: [facility]
--- NOTE | 2017-09-20 23:56 | CT ---
EXAM CT CERVICAL SPINE WITHOUT CONTRAST 09/20/17 HISTORY: Multiple falls. Trauma. Pain. COMPARISON: None. TECHNIQUE: Cervical spine CT is performed without contrast. Reformatted images are submitted for interpretation. FINDINGS: Lateral masses of C1 and C2 articulate appropriately. Odontoid process is intact. There is appropriat e articulation of the facets. There is extensive degenerative changes of the posterior elements. Ther e is multilevel degenerative disc disease with loss of disc space height and osteophyte formation. 2. 5 mm anterolisthesis of C4 upon C5 and 4.0 mm of anterolisthesis of C7 upon T1, likely on the basis o f degenerative change. Current study is not tailored to assess for ligamentous injury. Straightening of the normal cervical lordosis noted on then sagittal reformat images which may be due to patient po sition, muscle spasm or cervical collar. The visualized soft tissue neck structures are unremarkable. The visualized lung apices are unremarka ble. Central spinal canal and neural foramina are patent. Evaluation is limited by technique. Cervical spine vertebral body height is maintained. No fracture. IMPRESSION: 1. No fracture. 2. Chronic changes of the cervical spine as detailed above. 3. Spondylolisthesis as detailed above, likely on the basis of degenerative change. There is als o straightening of the normal cervical lordosis as detailed above. Current study is not tailored to a ssess for ligamentous injury. MRI if clinically warranted. POS: [facility]
[2017-09-21] MEDS ORDERED: Furosemide 40 MG/4 ML VIAL ONE (00:24)
== END 2017-09-21 00:37 | disposition home or self-care (01) ==
LOC: ERS 20:22
DX: I11.0 Hypertensive heart disease with heart failure (principal); I50.9 Heart failure, unspecified; N43.3 Hydrocele, unspecified; E11.9 Type 2 diabetes mellitus without complications; E78.5 Hyperlipidemia, unspecified; Z79.02 Long term (current) use of antithrombotics/antiplatelets; Z79.84 Long term (current) use of oral hypoglycemic drugs; Z79.82 Long term (current) use of aspirin; Z79.899 Other long term (current) drug therapy
CPT/HCPCS: 36415; 70450; 71045; 72125; 76870; 80048; 81003; 83880; 84443; 85025; 87077; 87086; 87186; 93976; 96374; J1940

== ENCOUNTER 2017-09-22 21:07 | Inpatient (IN) | payer MEDICARE ==
--- NOTE | 2017-09-22 21:50 | RAD ---
1 VIEW CHEST: Date: 09/22/17 COMPARISON: 09/20/17. HISTORY: Altered mental status. FINDINGS: Stable left-sided transvenous pacemaker. Stable configuration of the cardiac silhouette. There is ath erosclerosis of the aorta. Pulmonary vessels are within normal limits. Persistent blunting of the lef t costophrenic angle. Right costophrenic angle is clear. Interstitial opacities in the left and right lung base likely due to chronic change. Stable aeration of the upper lobes. There is no pneumothorax or osseous abnormalities. Calcifications in mitral annulus redemonstrated. Stable postoperative davalos ges in the right lung. IMPRESSION: No significant interval change. POS: [facility]
--- NOTE | 2017-09-22 21:52 | CT ---
NONCONTRAST HEAD CT: Date: 09/22/17 HISTORY: Altered mental status. Patient fell at home today. Intermittent episodes of confusion. COMPARISON: 09/20/17. TECHNIQUE: A noncontrast head CT is performed from the skull base to the skull vertex. FINDINGS: No parenchymal hemorrhage or extra-axial hematoma. No midline shift. Basilar cisterns are patent. Age -appropriate atrophy. Cortical macias-white matter differentiation is preserved. Ventricles and sulci a re patent and symmetric. Stable white matter hypodensities due to chronic small vessel ischemic change. 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 Adequate aeration of the sinuses and mastoid air cells. Intact calvarium. Cavernous carotid atheroscl erosis is again demonstrated. IMPRESSION: No acute intracranial process. When compared to the prior exam, no change. POS: [facility]
[2017-09-22 22:16] LABS: #Eosinphils 0.1 thou/uL (0.0-0.7); #Monocytes 0.5 thou/uL (0.11-0.59); #Neutrophils 6.9 thou/uL (1.40-6.50); %Basophils 0.2 % (0.0-1.0); %Eosinophils 0.9 % (0.0-10.0); %Lymphocytes 11.7 % (21.0-51.0); %Monocytes 6.2 % (0.0-10.0); Hemoglobin 9.9 g/dL (14.0-18.0); Mean Corpuscular HGB CONC 31.9 g/dL (32.0-36.0); Mean Corpuscular Hemoglobin 31.5 pg (27.0-31.0); Mean Corpuscular Volume 98.7 fl (80.0-94.0); Mean Platelet Volume 7.9 fL (7.4-10.4); Platelet Count 285 thou/uL (130-400); RBC Distribution Width 15.3 % (11.5-14.5); Red Blood Cell (RBC) Count 3.15 mill/uL (4.70-6.10); White Blood Cell (WBC) Count 8.5 thou/uL (4.8-10.8)
[2017-09-22 22:40] LABS: ALT (SGPT) 29 U/L (8-55); AST (SGOT) 36 U/L (5-34); Albumin 2.1 g/dL (3.4-4.8); Alkaline Phosphatase 87 U/L (40-150); Anion Gap 12 mmol/L (10-20); BUN (Urea Nitrogen) 16 mg/dL (8.4-25.7); Bilirubin, Total 0.5 mg/dL (0.2-1.2); CK (CPK) 254 U/L (30-200); Calc. Creatinine Clearance 0 mL/min (70-130); Calcium 6.9 mg/dL (7.8-10.44); Carbon Dioxide 25 mmol/L (23-31); Chloride 106 mmol/L (98-107); Estimated GFR-MDRD 86; Glucose 130 mg/dL (83-110); Lipase 12 U/L (8-78); Potassium 4.3 mmol/L (3.5-5.1); Protein, Total 5.1 g/dL (5.8-8.1); Sodium 139 mmol/L (136-145)
[2017-09-22 22:44] LABS: Troponin I Less than 0.010 ng/mL (< 0.028)
[2017-09-22 23:05] LABS: Bilirubin Negative (Negative); Blood, Urine Negative (Negative); Clarity CLEAR (Clear); Glucose, Urine (Dipstick) Negative (Negative); Leukocyte Negative (Negative); Nitrite Negative (Negative); Protein, Urine (Dipstick) Negative (Neg-Trace); Specific Gravity, Urine 1.015 (1.002-1.036)
[2017-09-22 23:12] LABS: Medtox Reader # READER 4
[2017-09-22 23:14] LABS: Amphetamine Not Detected (NotDetected); Barbiturates Screen Not Detected (NotDetected); Benzodiazepine Screen Not Detected (NotDetected); Cocaine Metabolite Screen Not Detected (NotDetected); Medtox Control Line Valid? VALID (VALID); Methadone Not Detected (NotDetected); Methamphetamine Not Detected (NotDetected); Opiate Screen Not Detected (NotDetected); Oxycodone Screen Not Detected (NotDetected); Phencyclidine (PCP) Not Detected (NotDetected); THC/Cannabinoid Screen Not Detected (NotDetected); Tricyclic Screen Not Detected (NotDetected)
[2017-09-23] MEDS ORDERED: Calcium Chloride 1 GM/10 ML Abboject SYRINGE ONE (01:42)
[2017-09-23] MEDS ORDERED: Furosemide 40 MG/4 ML VIAL ONE (01:42)
[2017-09-23] MEDS ORDERED: Labetalol HCl 100 MG/20 ML VIAL ONE (01:42)
[2017-09-23] MEDS ORDERED: Magnesium 2 GM/NS 0.9% 100 ML 2 GM in Premix Bag 1 BAG IVPB SCH (02:00)
[2017-09-23 02:11] LABS: Lactic Acid 1.7 mmol/L (0.5-2.2)
[2017-09-23 02:37] LABS: Troponin I 0.011 ng/mL (< 0.028)
[2017-09-23] MEDS ORDERED: Furosemide 40 MG/4 ML VIAL SLOW IVP SCH (03:30)
[2017-09-23] MEDS ORDERED: Levothyroxine Sodium 100 MCG TAB PO SCH (06:00)
--- NOTE | 2017-09-23 06:43 | HP-2 ---
DATE OF ADMISSION: 09/23/2017 CODE STATUS: DNR. PRIMARY CARE PHYSICIAN: Dr. Duggan. ATTENDING: Dr. Higuera. RESIDENT: Dr. Savage Lazo. HISTORIAN: Niece and the patient. CHIEF COMPLAINT: Altered mental status and generalized weakness. HISTORY OF PRESENT ILLNESS: This is an 87-year-old male with a past medical history of diastolic con gestive heart failure, presents with generalized weakness since Saturday and altered mental status th at the niece said started Saturday. Niece states that he has been confused, talking to himself and to other people who were not actually in the room. She also said since Saturday he has needed additiona l assistance with transferring from the bed to his wheelchair and vice versa. 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 The niece says that he has needed extra help wit h activities of daily living since Saturday and that he has been actively hallucinating since Saturday. The niece also reports worsened swelling in the right lower extremity. His last echo was in , which showed an ejection fraction of 55%-60% with diastolic dysfunction and moderate aortic stenos is. PAST MEDICAL HISTORY: 1. Uncontrolled hypothyroidism. 2. Diastolic CHF. 3. Diabetes mellitus, type 2. 4. Pacemaker placement. 5. Moderate aortic stenosis. PAST SURGICAL HISTORY: 1. Ulcer surgery, right. 2. Right lung biopsy. 3. Left fgahm-wdj-eibs amputation. ALLERGIES: No known drug allergies. MEDICATIONS: 1. Loratadine 10 mg daily. 2. Sertraline 25 mg daily. 3. Metformin 1000 mg b.i.d. 4. Iron sulfate 1 tab daily. 5. Atorvastatin 40 mg daily. 6. Aspirin 81 mg daily. 7. Clonazepam 2 mg b.i.d. 8. Plavix 75 mg daily. 9. Metoprolol extended release 50 mg daily. 10. Lasix 20 mg daily. 11. Lisinopril 40 mg daily. 12. Levothyroxine 100 mcg daily. 13. Avodart 0.5 mg daily. SOCIAL HISTORY: Denies tobacco, alcohol, and drug use. FAMILY HISTORY: Noncontributory. REVIEW OF SYSTEMS: General: Denies fevers and chills. Eyes: Denies vision changes. Respiratory: Denies cough, congestion. Cardiovascular: Denies chest pain, palpitations. Gastrointestinal: Den ies nausea, vomiting, diarrhea. Genitourinary: Denies incontinence, dysuria. Skin: Denies rashes or lesions. Musculoskeletal: Denies pain or tenderness. Neuro: Endorses generalized weakness. En dorses hallucinations and altered mental status and confusion per the niece. Psychiatric: Denies an xiety or depression. PHYSICAL EXAMINATION: VITAL SIGNS: Blood pressure 184/80, pulse 63-84, respiratory rate 14, T-max 98.4, pulse ox 98% on ro om air, current weight 73 kilos. GENERAL: Alert and oriented x2 to person and place. No apparent distress, thin, not appropriately i nteractive. HEENT: Eyes: Pupils were not reactive to light or accommodation. Unable to assess extraocular musc les. Nasal mucosa and oropharynx were dry. NECK: Supple. CARDIOVASCULAR: Regular rate and rhythm. Systolic ejection murmur 3/6. No pedal pulse felt in the right lower extremity. It was cold to the touch. RESPIRATORY: Normal effort. Crackles bilaterally. SKIN: Right foot was cold with right jackson had erythema with a wound approximately the size of a quar ter without evidence of infection. ABDOMEN: Soft, nontender to palpation. Bowel sounds in all 4 quadrants. No masses or distention. EXTREMITIES: See above in addition 2+ pitting edema at the right lower extremity that extended to th e hip. MUSCULOSKELETAL: Structure within normal limits. He has a above-the knee amputation of the left leg . He has polydactyly of the right foot and erythema of the right jackson, not warm to the touch. No pu lse present in his right foot. LABORATORY DATA: 1. CBC: 8.5, 9.9, 31.1, 285. 2. Chemistry: 139, 4.3, 106, 25, 16, 0.84, 130. 3. GFR 86. 4. AST, ALT, alkaline phosphatase 36, 29, 97. 5. Calcium 6.9, total protein 5.1, albumin 2.1, total bilirubin 0.5, magnesium 1.1. 6. Lactic acid 2.4. 7. BNP 1517. 8. TSH 8.5. 9. Lipase 12. 10. CK 254, CK-MB 9.0, troponin less than 0.010. 11. UA within normal limits. 12. UDS negative. 13. T4 0.81. 14. Chest x-ray: Interstitial opacities throughout lung del rosario. 15. CT of the head negative for intracranial bleed. ASSESSMENT AND PLAN: This is an 87-year-old man, who presents with, 1. Altered mentation and generalized weakness, admitted for encephalopathy, not otherwise specified. Does not appear to be metabolic, infectious, or toxic. In regard to metabolic, patient's TSH is el evated with a T4 that is within normal limits. Glucose is 130. Regarding infectious, no leukocytosi s, afebrile. In terms of toxicity, UDS was negative. We will order an MRI to rule out a mass or a l esion that could be causing the encephalopathy. We will do neuro checks q.4 hours. Cannot rule out a cerebrovascular accident at this time. We will allow for permissive hypertension, systolic blood p ressure less than 220/110. 2. Diastolic congestive heart failure. The patient had pitting edema to his hip with an increased B [employer] of 1517 and crackles bilaterally on exam. We will give a dose of 40 Lasix IV now and then provide 20 IV b.i.d. We will restart the patient's home medications and monitor I's and O's as well as prov torito fluid restriction. The patient will be admitted to telemetry observation. 3. Hypertensive urgency. We will allow permissive hypertension at this time with a goal of less min n 220/110. We will provide p.r.n. if the blood pressure gets above that value. 4. Hypothyroidism. Patient had elevated TSH. We will restart his Synthroid at 100 mcg daily. 5. Peripheral vascular disease. We are unable to palpate a right lower extremity pulse. We will or sharif a right lower extremity arterial Dopplers. 6. Right jackson wound. We will order a tibia/fibula and ankle x-ray. 7. Macrocytic anemia. We will order a B12 and folate and we will continue to monitor. 8. Hypomagnesemia. We will replace his magnesium and recheck it. 9. Disposition: We will order PT, OT, speech, case management, and dietitian consult to help assess patient's ability to perform ADLs and the patient's functional status in order to help assess proper placement upon discharge. DISPOSITION AND LENGTH OF HOSPITAL STAY: 2-3 days. Symptomatic medications will be provided. History and physical exam as well as management discussed with Dr. Higuera.
--- NOTE | 2017-09-23 07:46 | RAD ---
RIGHT ANKLE 3 VIEWS: Date: 09/23/17 HISTORY: Right ankle pain. FINDINGS/IMPRESSION: The ankle mortise is maintained. No fracture, dislocation, or bony destruction is seen. Plantar and p osterior calcaneal spurs are present. POS: [facility]
--- NOTE | 2017-09-23 07:47 | RAD ---
RIGHT LEG 2 VIEWS: Date: 09/23/17 HISTORY: Right leg pain, wound. FINDINGS/IMPRESSION: The right tibia and fibula are intact. No fracture, dislocation, or bony destruction is seen. There a re degenerative changes in the knee joint. Vascular calcifications are present. POS: [facility]
--- NOTE | 2017-09-23 09:17 | ULT ---
ARTERIAL DOPPLER LOWER EXTREMITY RIGHT: Date: 09/23/17 HISTORY: Unable to palpate pulses. Cold foot. COMPARISON: None. FINDINGS: Real-time Mason scale and color Doppler with spectral analysis of the right lower extremity arterial s ystem was performed with the linear transducer. Common femoral artery has monophasic waveform with peak systolic velocity of 132 cm/sec. Deep femoral artery has monophasic waveform with peak systolic velocity of 133 cm/sec. The proximal femoral arter y has monophasic waveform with spectral broadening and peak systolic velocity of 107 cm/sec. The mid femoral artery has monophasic waveform with spectral broadening and peak systolic velocity of 66 cm/s ec. The distal femoral artery peak systolic velocity of 37 cm/sec with monophasic waveforms. The popl iteal artery has monophasic waveform with peak systolic velocity of 30 cm/sec with spectral broadenin g and delayed upstroke. The anterior tibial artery has monophasic waveform with peak systolic velocit y of 45 cm/sec. Posterior tibial artery has monophasic waveform with spectral broadening and peak sys tolic velocity of 36 cm/sec. Dorsalis pedis artery has peak systolic velocity of 37 cm/sec with monop hasic waveform and spectral broadening. IMPRESSION: Abnormal waveforms throughout the right lower extremity with only monophasic waveforms. Below the dis ulises femoral artery, peak systolic velocities are abnormally dampened with absent diastolic flow. This may be sequelae of proximal high grade stenosis within the iliac arteries. CT angiogram with runoff may be beneficial in this patient if clinically warranted. Conventional angiogram would be more benef icial. POS: [facility]
[2017-09-23] MEDS ORDERED: Clopidogrel Bisulfate 75 MG TAB ONE (10:04)
[2017-09-23] MEDS ORDERED: Enoxaparin Sodium 40 MG/0.4 ML SYRINGE ONE (10:11)
[2017-09-23] MEDS: metFORMIN 500 MG TAB PO SCH ×2 (10:48→16:47)
[2017-09-23] MEDS: Clopidogrel Bisulfate 75 MG TAB PO SCH (10:48)
[2017-09-23] MEDS: Dutasteride 0.5 MG CAP PO SCH (10:49)
[2017-09-23] MEDS: Enoxaparin Sodium 40 MG/0.4 ML SYRINGE SC SCH (10:50)
[2017-09-23 11:11] LABS: pH, Arterial 7.44 (7.35-7.45)
[2017-09-23 11:12] LABS: Actual Bicarbonate (HCO3a) 27.5 mEq/L (22-26); Analyzer IN Cardio ER; Base Excess (BEa) 3.1 mEq/L (0 (+/-) 2.5); CO2 Tension 41.5 mmHg (35.0-45.0); Calcium, Ionized 1.1 mmol/L (1.12-1.30); Hematocrit-ABG 32.8 % (42.0-52.0); Hemoglobin (Hb) 10.3 g/dL (14.0-18.0); O2 Tension (PaO2) 77.9 mmHg (80.0-100.0); Puncture Site RRA
[2017-09-23 11:13] LABS: ALV-art Gradient 19.955 (0-20)
[2017-09-23] MEDS: Furosemide 20 MG/2 ML VIAL SLOW IVP SCH ×2 (11:21→15:16)
--- NOTE | 2017-09-23 11:43 | PDOC.EVN ---
Event Note - Event Note Event Note: Attending H&P I personally evaluated the patient and discussed the management with Drs. Duggan and Bhupinder. I have reviewed the written H&P and it is repeated by me. I agree with the History, Examination, Assessment and Plan documented above with any addition or exceptions noted below. Delirium and hallucinations have been on going for about 6 months. Recently worsened with progressive weakness and requirement for help with all ADLs. His family suspects he probably not taken his meds for the past 2 weeks. We are looking into neurologic, ID, metabolic, endocrine and medication related reasons for delirium, but it is likely multifactorial and noncompliance with meds is contributing. He is improved a lattle since treatment in the ER. He now recognized his daughter.
[2017-09-23] MEDS ORDERED: Dextrose 5% in Water 1,000 ML IV PRN (17:47)
[2017-09-23] MEDS ORDERED: Dextrose 50% Abboject 50 ML SYRINGE SLOW IVP PRN (17:47)
--- NOTE | 2017-09-23 20:56 | CON ---
DATE OF CONSULTATION: 09/23/2017 REASON FOR CONSULTATION: Evaluate patient with ischemic right leg. HISTORY OF PRESENT ILLNESS: Mr. Young is admitted to the hospital with generalized weakness and altered mental status. He seems to be mentally at his baseline according to his family. He has a lo ngstanding history of peripheral vascular disease. He was last evaluated with arteriography in [address] Ash. He was found on the right to have a flush occluded SFA. The distal popliteal artery reconstituted via profunda collaterals and had 3-vessel runoff. Since that time, he has undergone a left above-knee amputation. The right leg has remained in fairly good shape even though he does not ambulate at all, but just stands and pivots to get to his wheelchair. The right leg now has multiple ulcerations distally and is painful to the touch. It is moderately warm. He has had nonhealing ulc ers for at least a month on his lower extremity below the knee in multiple places. He has never had any procedures on the right leg. PAST MEDICAL HISTORY: 1. Peripheral vascular disease. 2. Aortic stenosis. 3. Diabetes mellitus. 4. Diastolic congestive heart failure. 5. Hypothyroidism. PAST SURGICAL HISTORY: 1. Left peripheral bypass x2. 2. Left above knee amputation. 3. Right lung biopsy. 4. Ulcer surgery. ALLERGIES: None. CURRENT MEDICATIONS: Noted. SOCIAL HISTORY: He does not use tobacco, alcohol or other drugs. He lives at home with his family. REVIEW OF SYSTEMS: Not performed due to language barrier. PHYSICAL EXAMINATION: GENERAL: This is a diminutive elderly gentleman resting comfortably in bed without complaint. VITAL SIGNS: Temperature is 98.1, pulse is 88 and regular, blood pressure 162/79. HEENT: Sclerae nonicteric. Pupils are equal, round bilaterally. NECK: Supple. He has transmitted bruits bilaterally. HEART: Rhythm is regular. He has a systolic ejection murmur heard throughout the precordium. LUNGS: Clear bilaterally. ABDOMEN: Soft and nontender, without mass. EXTREMITIES: The left stump has healed nicely. The right leg has multiple ulcerations below the kne e and there is a small amount of edema. VASCULAR: He has a palpable right femoral pulse. Ultrasound examination of the right lower extremity shows dampened monophasic femoral arterial wavefo bronson with high peak systolic velocities indicated of more proximal stenosis. On his previous angiogra phy, the superficial femoral was flush occluded with profunda collaterals providing the flow to the d istal leg. ASSESSMENT AND PLAN: This is an unfortunate 87-year-old gentleman who has ulcerations on his leg and rest pain. I have discussed doing angiography and potential iliac intervention. I do not think the re is any reason to except with a flush occluded SFA in 2011 that there would be any sort of interven tion that would be possible in his SFA. We will work to ensure good inflow. If he needs a further o pen surgical intervention to his vascular tree, we can certainly discuss that afterwards.
[2017-09-23] MEDS: Atorvastatin Calcium 20 MG TAB PO SCH (21:32)
[2017-09-24 05:36] LABS: #Eosinphils 0.1 thou/uL (0.0-0.7); #Lymphocytes 1.3 thou/uL (1.20-3.40); #Monocytes 0.5 thou/uL (0.11-0.59); #Neutrophils 4.3 thou/uL (1.40-6.50); %Basophils 0.6 % (0.0-1.0); %Eosinophils 1.1 % (0.0-10.0); %Lymphocytes 20.8 % (21.0-51.0); %Monocytes 8.4 % (0.0-10.0); %Neutrophils 69.1 % (42.0-75.0); Hemoglobin 10.3 g/dL (14.0-18.0); Mean Corpuscular HGB CONC 32.1 g/dL (32.0-36.0); Mean Corpuscular Hemoglobin 31.4 pg (27.0-31.0); Mean Corpuscular Volume 97.7 fl (80.0-94.0); Mean Platelet Volume 8.4 fL (7.4-10.4); Platelet Count 293 thou/uL (130-400); RBC Distribution Width 15.6 % (11.5-14.5); Red Blood Cell (RBC) Count 3.27 mill/uL (4.70-6.10); White Blood Cell (WBC) Count 6.2 thou/uL (4.8-10.8)
[2017-09-24 05:49] LABS: Anion Gap 9 mmol/L (10-20); BUN (Urea Nitrogen) 17 mg/dL (8.4-25.7); Calc. Creatinine Clearance 73 mL/min (70-130); Calcium 7.3 mg/dL (7.8-10.44); Carbon Dioxide 29 mmol/L (23-31); Chloride 104 mmol/L (98-107); Estimated GFR-MDRD 90; Glucose 116 mg/dL (83-110); Potassium 3.8 mmol/L (3.5-5.1); Sodium 138 mmol/L (136-145)
[2017-09-24] MEDS ORDERED: Levothyroxine 100 MCG SDV SLOW IVP SCH (06:00)
[2017-09-24] MEDS: Furosemide 20 MG/2 ML VIAL SLOW IVP SCH ×2 (06:06→15:19)
--- NOTE | 2017-09-24 08:50 | PDOC.FM ---
- Subjective Subjective: Patient with improved mentation this morning as compared to yesterday. Family in the room report he is back to baseline. He is oriented x 3 when being spoken to in Congolese. - Objective MAR Reviewed: Yes Vital Signs & Weight: Vital Signs (12 hours) Temp Pulse Resp BP Pulse Ox 09/24/17 03:53 99.3 F 82 18 173/79 H 95 09/24/17 00:00 99.1 F 85 19 166/75 H 96 Weight Admit Weight 60.01 kg Weight 60.01 kg I&O: 09/23/17 09/24/17 09/25/17 06:59 06:59 06:59 Intake Total 232 Output Total 1850 Balance -1618 Result Diagrams: 09/24/17 04:16 09/24/17 04:16 <Jeb Duggan - Last Filed: 09/24/17 08:48> - Objective Vital Signs & Weight: Vital Signs (12 hours) Temp Pulse Resp BP BP Pulse Ox Pulse Ox 09/24/17 09:57 192/88 H 94 L 09/24/17 08:50 97.9 F 85 18 192/88 H 99 09/24/17 03:53 99.3 F 82 18 173/79 H 95 09/24/17 00:00 99.1 F 85 19 166/75 H 96 Weight Admit Weight 60.01 kg Weight 60.01 kg I&O: 09/23/17 09/24/17 09/25/17 06:59 06:59 06:59 Intake Total 232 Output Total 1850 Balance -1618 Result Diagrams: 09/24/17 04:16 09/24/17 04:16 <Flash Higuera - Last Filed: 09/24/17 10:51> Phys Exam - Physical Examination Constitutional: NAD HEENT: moist MMs Respiratory: no wheezing, no rales Cardiovascular: RRR, no significant murmur Gastrointestinal: soft, non-tender Neurological: normal sensation Psychiatric: normal affect, A&O x 3 <Jeb Duggan - Last Filed: 09/24/17 08:48> Dx/Plan (1) Altered mental status Code(s): R41.82 - ALTERED MENTAL STATUS, UNSPECIFIED Status: Acute Plan: Patient has a 2 year history of memory difficulties attributed to dementia. He began having hallucinations roughly six months ago. His AMS is likely multifactorial. TSH was grossly elevated in June and he has not been compliant with medication. He was volume down on admission, so dehydration was a contributing factor. CT head is negative. MRI brain pending (2) Diastolic congestive heart failure with preserved left ventricular function , NYHA class 2 Code(s): I50.30 - UNSPECIFIED DIASTOLIC (CONGESTIVE) HEART FAILURE Status: Chronic Plan: BNP of 1517 on admission Continue home medications with Lasix 20mg IV BID Strict I/O's (3) HLD (hyperlipidemia) Code(s): E78.5 - HYPERLIPIDEMIA, UNSPECIFIED Status: Chronic Plan: continue atorvastatin (4) HTN (hypertension) Code(s): I10 - ESSENTIAL (PRIMARY) HYPERTENSION Status: Chronic Plan: Patient mildly hypertensive overnight, likely his normal range Likely start lisinopril today (5) Hypothyroid Code(s): E03.9 - HYPOTHYROIDISM, UNSPECIFIED Status: Chronic Plan: Patient has been noncompliant with synthroid. We will restart home dose in hospital (6) Macrocytic anemia Code(s): D53.9 - NUTRITIONAL ANEMIA, UNSPECIFIED Status: Acute (7) PVD (peripheral vascular disease) Code(s): I73.9 - PERIPHERAL VASCULAR DISEASE, UNSPECIFIED Status: Chronic Plan: s/p L AKA Dr. Virgen is following patient while in hospital -LE doppler shows monophasic waveform, recommend CT angio with runoff -Dr. Virgen following and will manage - Plan Plan: Plan: -MRI brain today -placement to rehab v SNF -continue medications and monitor for change in mental status, patient is currently at baseline <Jeb Duggan - Last Filed: 09/24/17 08:48> Attending Addendum - Attending Addendum I personally evaluated the patient and discussed the management with Dr. Duggan. I agree with the History, Examination, Assessment and Plan documented above with any addition or exceptions noted below. Patient is back to baseline metally. I suspect his delirium was a combination of underlying dementia, medication noncompliance resulting in uncontrolled HTN and hypothyroidism, as well as dehydration. He requires 24/7 care for ADLS, and medication administration. Stable fro discharge, when family able to arrange care. <Flash Higuera - Last Filed: 09/24/17 10:51>
[2017-09-24] MEDS ORDERED: hydrALAZINE 20 MG/ML VIAL SLOW IVP SCH (10:15)
[2017-09-24] MEDS: Clopidogrel Bisulfate 75 MG TAB PO SCH (10:57)
[2017-09-24] MEDS: Dutasteride 0.5 MG CAP PO SCH (10:58)
[2017-09-24] MEDS: Enoxaparin Sodium 40 MG/0.4 ML SYRINGE SC SCH (10:58)
[2017-09-24] MEDS ORDERED: Sodium Chloride 0.9% 10 ML ONE ×2 (11:02→15:13)
[2017-09-24] MEDS ORDERED: hydrALAZINE 20 MG/ML VIAL SLOW IVP PRN (11:06)
[2017-09-24] MEDS ORDERED: Iopamidol 370 76% 50 ML VIAL FS ONE (11:54)
[2017-09-24] MEDS ORDERED: Midazolam HCl 2 mg/2 ml Vial ONE (13:18)
[2017-09-24] MEDS ORDERED: Fentanyl 100 MCG/2 ML VIAL ONE (13:18)
[2017-09-24 13:30] LABS: Syphilis Antibody Nonreactive (Nonreactive)
--- NOTE | 2017-09-24 13:53 | OP ---
DATE OF PROCEDURE: 09/24/2017 PREOPERATIVE DIAGNOSES: Peripheral vascular disease with right lower extremity rest pain and ulcerat ion. POSTOPERATIVE DIAGNOSES: Peripheral vascular disease with right lower extremity rest pain and ulcera tion. PROCEDURES: 1. Abdominal aortogram. 2. External iliac artery angiogram with right leg runoff. SURGEON: Kurtis Virgen M.D. ANESTHESIA: 1% lidocaine for local. TOTAL FLUORO TIME: 1.2 minutes. TOTAL CONTRAST: 24 mL. PROCEDURE IN DETAIL: After consent was obtained, the patient was brought up to the [facility]. Approp riate monitoring was placed. The right groin was prepped and draped in usual sterile fashion. Using ultrasound guidance, the right groin was anesthetized and the right common femoral artery was access ed with a micropuncture needle. Micropuncture wire and sheath were placed, then exchanged for a 5-Fr ench sheath. The Contra catheter was passed into the upper abdominal aorta. Aortogram was performed using hand injected technique. The aorta and renal arteries were patent bilaterally. The common in ternal and external iliac arteries were diseased, although patent. There was no flow limiting lesion within the iliac system. The Contra catheter was then removed. Hand injected arteriogram was perfo rmed through the sheath in multiple planes to evaluate the external iliac and common femoral arteries which were patent with no flow-limiting lesions. Superficial femoral artery was chronically occlude d. The profunda was patent, although heavily diseased. The II was moved down to the level of the kn ee and hand injected arteriogram was performed in the external iliac artery. The profunda collateral s filled up the above knee popliteal artery which then fed all three tibials to the foot. Sheath and guidewires were then removed and manual pressure held for hemostasis. The patient tolerated the pro cedure well, and was transferred back to his room in stable condition.
[2017-09-24] MEDS: Atorvastatin Calcium 20 MG TAB PO SCH (21:32)
[2017-09-25 04:58] LABS: #Eosinphils 0.1 thou/uL (0.0-0.7); #Lymphocytes 1.5 thou/uL (1.20-3.40); #Monocytes 0.6 thou/uL (0.11-0.59); %Basophils 0.2 % (0.0-1.0); %Eosinophils 1.3 % (0.0-10.0); %Lymphocytes 18.2 % (21.0-51.0); %Monocytes 7.4 % (0.0-10.0); %Neutrophils 72.9 % (42.0-75.0); Hemoglobin 11.3 g/dL (14.0-18.0); Mean Corpuscular HGB CONC 32.3 g/dL (32.0-36.0); Mean Corpuscular Hemoglobin 31.5 pg (27.0-31.0); Mean Corpuscular Volume 97.4 fl (80.0-94.0); Mean Platelet Volume 7.9 fL (7.4-10.4); Platelet Count 301 thou/uL (130-400); RBC Distribution Width 15.7 % (11.5-14.5); Red Blood Cell (RBC) Count 3.59 mill/uL (4.70-6.10); White Blood Cell (WBC) Count 8.2 thou/uL (4.8-10.8)
[2017-09-25 05:13] LABS: Anion Gap 7 mmol/L (10-20); BUN (Urea Nitrogen) 16 mg/dL (8.4-25.7); Calc. Creatinine Clearance 52 mL/min (70-130); Calcium 7.4 mg/dL (7.8-10.44); Carbon Dioxide 32 mmol/L (23-31); Chloride 101 mmol/L (98-107); Estimated GFR-MDRD 87; Glucose 164 mg/dL (83-110); Potassium 3.4 mmol/L (3.5-5.1); Sodium 137 mmol/L (136-145)
[2017-09-25] MEDS: Furosemide 20 MG/2 ML VIAL SLOW IVP SCH ×2 (05:38→14:34)
[2017-09-25] MEDS: hydrALAZINE 20 MG/ML VIAL SLOW IVP PRN (05:38)
[2017-09-25] MEDS: Levothyroxine Sodium 100 MCG TAB PO SCH (05:40)
--- NOTE | 2017-09-25 08:27 | PDOC.FM ---
- Subjective Subjective: Patient sitting up in bed, answering questions in [place]. A&Ox1 He will go for Fem-Pop bypass with Dr. Virgen on No acute events overnight - Objective MAR Reviewed: Yes Vital Signs & Weight: Vital Signs (12 hours) Temp Pulse Resp BP Pulse Ox 09/25/17 05:38 97 09/25/17 03:51 98.3 F 97 16 193/89 H 93 L Weight Admit Weight 60.01 kg Weight 56.336 kg I&O: 09/24/17 09/25/17 09/26/17 06:59 06:59 06:59 Intake Total 232 360 Output Total 1850 450 Balance -1618 -90 Result Diagrams: 09/25/17 04:19 09/25/17 04:19 <Jeb Duggan - Last Filed: 09/25/17 08:26> - Objective Vital Signs & Weight: Vital Signs (12 hours) Temp Pulse Resp BP Pulse Ox 09/25/17 08:10 97.0 F L 98 16 167/74 H 97 09/25/17 05:38 97 09/25/17 03:51 98.3 F 97 16 193/89 H 93 L Weight Admit Weight 60.01 kg Weight 56.336 kg I&O: 09/24/17 09/25/17 09/26/17 06:59 06:59 06:59 Intake Total 232 360 Output Total 1850 450 Balance -1618 -90 Result Diagrams: 09/25/17 04:19 09/25/17 04:19 <Flash Higuera - Last Filed: 09/25/17 11:25> Phys Exam - Physical Examination Constitutional: NAD HEENT: moist MMs Neck: no JVD Respiratory: no wheezing, no rales Cardiovascular: RRR, no significant murmur Gastrointestinal: soft, non-tender Psychiatric: normal affect Deviation from normal: A&Ox1 <Jeb Duggan - Last Filed: 09/25/17 08:26> Dx/Plan (1) Altered mental status Code(s): R41.82 - ALTERED MENTAL STATUS, UNSPECIFIED Status: Acute Plan: Patient has a 2 year history of memory difficulties attributed to dementia. He began having hallucinations roughly six months ago. His AMS is likely multifactorial. TSH was grossly elevated in June and he has not been compliant with medication. He was volume down on admission, so dehydration was a contributing factor. There is also likely a vascular component to his waxing and waning mentation. Elevations in blood pressure correlate with alteration in mental status. Patient is back to baseline this morning and will likely improve with continued medication adherence. (2) PVD (peripheral vascular disease) Code(s): I73.9 - PERIPHERAL VASCULAR DISEASE, UNSPECIFIED Status: Chronic Plan: s/p L AKA Dr. Virgen is following patient while in hospital -LE doppler shows monophasic waveform -CT angio with runoff done 09/24 -Dr. Virgen will perform femoral-popliteal bypass on (3) Diastolic congestive heart failure with preserved left ventricular function , NYHA class 2 Code(s): I50.30 - UNSPECIFIED DIASTOLIC (CONGESTIVE) HEART FAILURE Status: Chronic Plan: BNP of 1517 on admission Continue home medications with Lasix 20mg IV BID Strict I/O's (4) HLD (hyperlipidemia) Code(s): E78.5 - HYPERLIPIDEMIA, UNSPECIFIED Status: Chronic Plan: continue atorvastatin (5) HTN (hypertension) Code(s): I10 - ESSENTIAL (PRIMARY) HYPERTENSION Status: Chronic Plan: Patient mildly hypertensive overnight, likely his normal range (6) Hypothyroid Code(s): E03.9 - HYPOTHYROIDISM, UNSPECIFIED Status: Chronic Plan: Patient has been noncompliant with synthroid. We will restart home dose in hospital (7) Macrocytic anemia Code(s): D53.9 - NUTRITIONAL ANEMIA, UNSPECIFIED Status: Acute - Plan Plan: Plan: -stable medically -will keep for surgery on <Jeb Duggan - Last Filed: 09/25/17 08:26> Attending Addendum - Attending Addendum I personally evaluated the patient and discussed the management with Dr. Duggan. I agree with the History, Examination, Assessment and Plan documented above with any addition or exceptions noted below. Will add lisinopril for better BP control. <Flash Higuera - Last Filed: 09/25/17 11:25>
[2017-09-25] MEDS ORDERED: Potassium Chloride 40 MEQ, Admixture Fee 1 EACH in Sodium Chloride 0.9% 250 ML 250 ML IVPB SCH (08:45)
[2017-09-25] MEDS ORDERED: Potassium Chloride 40 MEQ in Premix Bag 1 BAG IVPB SCH (08:45)
[2017-09-25] MEDS: Dutasteride 0.5 MG CAP PO SCH (09:36)
[2017-09-25] MEDS: Insulin Regular 300 UNITS/3 ML VIAL SC PRN ×2 (12:13→17:04)
[2017-09-25] MEDS: Lisinopril 20 MG TAB PO SCH (18:10)
[2017-09-25] MEDS: Atorvastatin Calcium 20 MG TAB PO SCH (21:10)
[2017-09-25] MEDS: Magnesium Chloride 64 MG TAB PO SCH (21:13)
[2017-09-26] MEDS: hydrALAZINE 20 MG/ML VIAL SLOW IVP PRN (05:01)
[2017-09-26] MEDS: Furosemide 20 MG/2 ML VIAL SLOW IVP SCH ×2 (05:08→14:28)
[2017-09-26] MEDS: Levothyroxine Sodium 100 MCG TAB PO SCH (05:08)
[2017-09-26 05:09] LABS: #Eosinphils 0.1 thou/uL (0.0-0.7); #Lymphocytes 1.1 thou/uL (1.20-3.40); #Monocytes 0.5 thou/uL (0.11-0.59); #Neutrophils 7.1 thou/uL (1.40-6.50); %Basophils 0.1 % (0.0-1.0); %Lymphocytes 12.7 % (21.0-51.0); %Monocytes 5.9 % (0.0-10.0); %Neutrophils 80.3 % (42.0-75.0); Hemoglobin 11.6 g/dL (14.0-18.0); Mean Corpuscular HGB CONC 32.1 g/dL (32.0-36.0); Mean Corpuscular Hemoglobin 31.5 pg (27.0-31.0); Platelet Count 310 thou/uL (130-400); RBC Distribution Width 15.5 % (11.5-14.5); Red Blood Cell (RBC) Count 3.69 mill/uL (4.70-6.10); White Blood Cell (WBC) Count 8.8 thou/uL (4.8-10.8)
[2017-09-26 05:35] LABS: Anion Gap 11 mmol/L (10-20); BUN (Urea Nitrogen) 13 mg/dL (8.4-25.7); Calc. Creatinine Clearance 57 mL/min (70-130); Calcium 7.5 mg/dL (7.8-10.44); Carbon Dioxide 30 mmol/L (23-31); Chloride 99 mmol/L (98-107); Estimated GFR-MDRD Greater than 90; Glucose 133 mg/dL (83-110); Potassium 4.1 mmol/L (3.5-5.1); Sodium 136 mmol/L (136-145)
[2017-09-26] MEDS ORDERED: CEFAZOLIN/Water 2 GM/20 ML SYRINGE SLOW IVP SCH ×2 (06:00→11:17)
[2017-09-26] MEDS ORDERED: CEFAZOLIN/Water 2 GM/20 ML SYRINGE ONE (06:18)
[2017-09-26] MEDS ORDERED: Heparin 5,000 UNITS/ML VIAL ONE (06:23)
[2017-09-26] MEDS ORDERED: Protamine Sulfate 50 MG/5 ML VIAL ONE (06:27)
[2017-09-26] MEDS ORDERED: Fentanyl 100 MCG/2 ML VIAL ONE (07:06)
--- NOTE | 2017-09-26 10:02 | RAD ---
CHEST ONE VIEW: History: Central line placement. Comparison: 09-22-17 FINDINGS: Central venous catheter is in place with tip not seen due to numerous overlying cardiac leads. No pne umothorax. Perihilar opacities are present. Dense mitral annular calcifications. Small left effusion. IMPRESSION: Uncomplicated placement of central venous catheter, the tip poorly seen due to numerous overlying nilson ds. Follow up recommended. POS: OFF
--- NOTE | 2017-09-26 10:03 | OP ---
DATE OF PROCEDURE: 09/26/2017 PREOPERATIVE DIAGNOSIS: Peripheral vascular disease. POSTOPERATIVE DIAGNOSIS: Peripheral vascular disease. PROCEDURE PERFORMED: Right femoral to above knee popliteal artery bypass utilizing 8 mm ringed Propa ten coated Butler-Connor. SURGEON: Kurtis Virgen M.D. ANESTHESIA: General endotracheal, Dr. Ludwin Brown. ESTIMATED BLOOD LOSS: Less than 50. PROCEDURE IN DETAIL: After consent was obtained, the patient was brought to the operating room and p laced in the supine position on the operating room table. Appropriate anesthetic monitor was placed and general endotracheal anesthesia induced. Right leg was prepped and draped in usual sterile fashi on. A right central line was place. The skin incision was made over the common femoral artery. Com mon profunda and superficial femoral arteries were dissected free from surrounding tissues. The abov e knee popliteal was exposed through Luis A's canal. The patient was given 5000 units of heparin. A fter 3 minutes, the 8 mm ringed Butler-Connor graft was tunneled. Distal anastomosis was created with run torey 6-0 Prolene suture. Graft was then cut to appropriate length and the ring was removed to allow for proximal anastomosis. Proximal anastomosis was created with running 5-0 Prolene suture. A 50 mg of protamine was given. Hemostasis was ensured. Wounds were irrigated and closed in layers and Eddie mabond applied to the skin. The patient tolerated the procedure well, and was transferred to recover y room in stable condition. Needle, sponge, and instrument counts were all reported as correct at th e end of the procedure.
[2017-09-26] MEDS ORDERED: traMADol HCl 50 MG TAB PO PRN (11:17)
[2017-09-26] MEDS: Dutasteride 0.5 MG CAP PO SCH (12:18)
[2017-09-26] MEDS: Magnesium Chloride 64 MG TAB PO SCH ×2 (12:19→20:42)
[2017-09-26] MEDS ORDERED: Propofol 200 MG/20 ML VIAL ONE (14:19)
[2017-09-26] MEDS ORDERED: PHENYLEPHRINE-NS 100 MCG/ML 10 ML SYRINGE ONE (14:19)
[2017-09-26] MEDS ORDERED: Ondansetron HCl/PF 4 MG/2 ML Vial ONE (14:19)
[2017-09-26] MEDS ORDERED: Glycopyrrolate 0.2 MG/ML 5 ML SYRINGE ONE (14:19)
[2017-09-26] MEDS ORDERED: Lidocaine 1% PF 5 ML VIAL ONE (14:19)
[2017-09-26] MEDS ORDERED: Dexamethasone 20 MG/5 ML VIAL ONE (14:19)
[2017-09-26 14:38] VITALS: BMI 19.1
[2017-09-26] MEDS: CEFAZOLIN/Water 2 GM/20 ML SYRINGE SLOW IVP SCH (16:21)
--- NOTE | 2017-09-26 17:01 | PDOC.FM ---
- Subjective Subjective: Patient went for femoral-popliteal bypass this AM 09/27 to [facility]. He is asleep in bed but arousable. Pedal pulse intact. No acute distress at this time. - Objective MAR Reviewed: Yes Vital Signs & Weight: Vital Signs (12 hours) Temp Pulse Resp BP Pulse Ox 09/26/17 11:30 96.6 F L 82 18 09/26/17 11:05 96.6 F L 82 18 92/52 L 94 L 09/26/17 05:05 77 168/72 H Weight Admit Weight 60.01 kg Weight 57.017 kg I&O: 09/25/17 09/26/17 09/27/17 06:59 06:59 06:59 Intake Total 360 960 Output Total 450 2300 Balance -90 -1340 Result Diagrams: 09/26/17 04:13 09/26/17 04:13 <Jeb Duggan - Last Filed: 09/26/17 16:59> - Objective Vital Signs & Weight: Vital Signs (12 hours) Temp Pulse Resp BP Pulse Ox 09/26/17 11:30 96.6 F L 82 18 09/26/17 11:05 96.6 F L 82 18 92/52 L 94 L Weight Admit Weight 60.01 kg Weight 57.017 kg I&O: 09/25/17 09/26/17 09/27/17 06:59 06:59 06:59 Intake Total 360 960 Output Total 450 2300 Balance -90 -1340 Result Diagrams: 09/26/17 04:13 09/26/17 04:13 <Bharathi Park - Last Filed: 09/26/17 17:14> Phys Exam - Physical Examination Constitutional: NAD HEENT: moist MMs Neck: no JVD Respiratory: no wheezing, no rales Cardiovascular: RRR, no significant murmur Gastrointestinal: soft, non-tender Musculoskeletal: no edema Psychiatric: normal affect <Jeb Duggan - Last Filed: 09/26/17 16:59> Dx/Plan (1) Altered mental status Code(s): R41.82 - ALTERED MENTAL STATUS, UNSPECIFIED Status: Acute Plan: Patient has a 2 year history of memory difficulties attributed to dementia. He began having hallucinations roughly six months ago. His AMS is likely multifactorial. TSH was grossly elevated in June and he has not been compliant with medication. He was volume down on admission, so dehydration was a contributing factor. There is also likely a vascular component to his waxing and waning mentation. Elevations in blood pressure correlate with alteration in mental status. Patient is back to baseline this morning and will likely improve with continued medication adherence. (2) PVD (peripheral vascular disease) Code(s): I73.9 - PERIPHERAL VASCULAR DISEASE, UNSPECIFIED Status: Chronic Plan: s/p L AKA Fem-pop bypass today, patient tolerated procedure well continue to monitor (3) Diastolic congestive heart failure with preserved left ventricular function , NYHA class 2 Code(s): I50.30 - UNSPECIFIED DIASTOLIC (CONGESTIVE) HEART FAILURE Status: Chronic Plan: BNP of 1517 on admission Continue home medications with Lasix 20mg IV BID Strict I/O's (4) HLD (hyperlipidemia) Code(s): E78.5 - HYPERLIPIDEMIA, UNSPECIFIED Status: Chronic Plan: continue atorvastatin (5) HTN (hypertension) Code(s): I10 - ESSENTIAL (PRIMARY) HYPERTENSION Status: Chronic Plan: Patient mildly hypertensive overnight, likely his normal range (6) Hypothyroid Code(s): E03.9 - HYPOTHYROIDISM, UNSPECIFIED Status: Chronic Plan: Patient has been noncompliant with synthroid. We will restart home dose in hospital (7) Macrocytic anemia Code(s): D53.9 - NUTRITIONAL ANEMIA, UNSPECIFIED Status: Acute <Jeb Duggan - Last Filed: 09/26/17 16:59> Attending Addendum - Attending Addendum I personally evaluated the patient and discussed the management with [Urban] I agree with the History, Examination, Assessment and Plan documented above with any addition or exceptions noted below. <Bharathi Park - Last Filed: 09/26/17 17:14>
[2017-09-26] MEDS: Lisinopril 20 MG TAB PO SCH (19:05)
[2017-09-26] MEDS: Atorvastatin Calcium 20 MG TAB PO SCH (20:42)
[2017-09-27] MEDS: CEFAZOLIN/Water 2 GM/20 ML SYRINGE SLOW IVP SCH ×2 (00:25→09:07)
[2017-09-27 05:36] LABS: Anion Gap 16 mmol/L (10-20); BUN (Urea Nitrogen) 20 mg/dL (8.4-25.7); Calc. Creatinine Clearance 37 mL/min (70-130); Carbon Dioxide 20 mmol/L (23-31); Chloride 101 mmol/L (98-107); Estimated GFR-MDRD 63; Glucose 134 mg/dL (83-110); Potassium 4.4 mmol/L (3.5-5.1); Sodium 133 mmol/L (136-145)
[2017-09-27] MEDS: Levothyroxine Sodium 100 MCG TAB PO SCH (05:40)
[2017-09-27] MEDS: Furosemide 20 MG/2 ML VIAL SLOW IVP SCH ×2 (05:41→13:30)
[2017-09-27 06:28] LABS: #Eosinphils 0.1 thou/uL (0.0-0.7); #Monocytes 0.8 thou/uL (0.11-0.59); #Neutrophils 13.9 thou/uL (1.40-6.50); %Basophils 0.2 % (0.0-1.0); %Eosinophils 0.3 % (0.0-10.0); %Lymphocytes 6.3 % (21.0-51.0); %Monocytes 4.8 % (0.0-10.0); %Neutrophils 88.4 % (42.0-75.0); Mean Corpuscular HGB CONC 30.7 g/dL (32.0-36.0); Mean Corpuscular Hemoglobin 30.3 pg (27.0-31.0); Mean Corpuscular Volume 98.4 fl (80.0-94.0); Mean Platelet Volume 9.2 fL (7.4-10.4); Platelet Count 258 thou/uL (130-400); RBC Distribution Width 16.1 % (11.5-14.5); Red Blood Cell (RBC) Count 3.97 mill/uL (4.70-6.10); White Blood Cell (WBC) Count 15.7 thou/uL (4.8-10.8)
--- NOTE | 2017-09-27 08:02 | PDOC.FM ---
- Subjective Subjective: Patient resting comfortably this morning. He has no complaints today. No acute events overnight. Family in the room reports he is still at his baseline, and is not c/o post-op pain - Objective MAR Reviewed: Yes Vital Signs & Weight: Vital Signs (12 hours) Temp Pulse Resp BP Pulse Ox 09/27/17 05:24 99 09/27/17 04:00 97.4 F L 67 16 108/56 L 99 Weight Admit Weight 60.01 kg Weight 56.2 kg I&O: 09/26/17 09/27/17 09/28/17 06:59 06:59 06:59 Intake Total 960 480 Output Total 2300 400 Balance -1340 80 Result Diagrams: 09/27/17 04:18 09/27/17 04:18 <Jeb Duggan - Last Filed: 09/27/17 08:00> - Objective Vital Signs & Weight: Vital Signs (12 hours) Temp Pulse Resp BP Pulse Ox 09/27/17 07:35 97.7 F 71 16 124/58 L 09/27/17 05:24 99 09/27/17 04:00 97.4 F L 67 16 108/56 L 99 Weight Admit Weight 60.01 kg Weight 56.2 kg I&O: 09/26/17 09/27/17 09/28/17 06:59 06:59 06:59 Intake Total 960 480 Output Total 2300 400 Balance -1340 80 Result Diagrams: 09/27/17 04:18 09/27/17 04:18 <Joby Guerin - Last Filed: 09/27/17 10:49> Phys Exam - Physical Examination Constitutional: NAD HEENT: moist MMs Respiratory: no wheezing, no rales Cardiovascular: RRR, no significant murmur Gastrointestinal: soft, non-tender right groin dressing-clean, dry, intact <Jeb Duggan - Last Filed: 09/27/17 08:00> Dx/Plan (1) Altered mental status Code(s): R41.82 - ALTERED MENTAL STATUS, UNSPECIFIED Status: Acute Plan: Patient has a 2 year history of memory difficulties attributed to dementia. He began having hallucinations roughly six months ago. His AMS is likely multifactorial. TSH was grossly elevated in June and he has not been compliant with medication. He was volume down on admission, so dehydration was a contributing factor. There is also likely a vascular component to his waxing and waning mentation. Elevations in blood pressure correlate with alteration in mental status. Patient is back to baseline this morning and will likely improve with continued medication adherence. (2) PVD (peripheral vascular disease) Code(s): I73.9 - PERIPHERAL VASCULAR DISEASE, UNSPECIFIED Status: Chronic Plan: s/p L AKA POD #1 from Fem-pop bypass on right leg patient tolerated procedure well continue to monitor (3) Diastolic congestive heart failure with preserved left ventricular function , NYHA class 2 Code(s): I50.30 - UNSPECIFIED DIASTOLIC (CONGESTIVE) HEART FAILURE Status: Chronic Plan: BNP of 1517 on admission Continue home medications with Lasix 20mg IV BID Strict I/O's (4) HLD (hyperlipidemia) Code(s): E78.5 - HYPERLIPIDEMIA, UNSPECIFIED Status: Chronic Plan: continue atorvastatin (5) HTN (hypertension) Code(s): I10 - ESSENTIAL (PRIMARY) HYPERTENSION Status: Chronic Plan: Patient mildly hypertensive overnight, likely his normal range (6) Hypothyroid Code(s): E03.9 - HYPOTHYROIDISM, UNSPECIFIED Status: Chronic Plan: Patient has been noncompliant with synthroid. We will restart home dose in hospital (7) Macrocytic anemia Code(s): D53.9 - NUTRITIONAL ANEMIA, UNSPECIFIED Status: Acute - Plan Plan: Plan: -await surgery recommendations -patient is back to baseline and has been set up with since he cannot go to SNF -possible d/c today <Jeb Duggan - Last Filed: 09/27/17 08:00> Attending Addendum - Attending Addendum I personally evaluated the patient and discussed the management with Dr. Duggan. I agree with and repeated the History, Examination, Assessment and Plan documented above with any addition or exceptions noted below. Patient in good spirits this morning. Minimal pain. No n/v/cp/sob/f/c. Leukocytosis likely postsurgical, no s/s infection. s/p F-P bypass. Await Dr. Virgen's recs. Likely discharge from our standpoint. <Joby Guerin - Last Filed: 09/27/17 10:49>
[2017-09-27] MEDS: Dutasteride 0.5 MG CAP PO SCH (09:07)
[2017-09-27] MEDS: Magnesium Chloride 64 MG TAB PO SCH ×2 (09:07→21:20)
[2017-09-27] MEDS: Insulin Regular 300 UNITS/3 ML VIAL SC PRN ×4 (09:09→21:25)
[2017-09-27] MEDS: Lisinopril 20 MG TAB PO SCH (17:29)
[2017-09-27] MEDS ORDERED: Sodium Chloride 0.9% 500 ML IV SCH (19:45)
[2017-09-27] MEDS: Atorvastatin Calcium 20 MG TAB PO SCH (21:20)
[2017-09-28 05:20] LABS: #Lymphocytes 0.8 thou/uL (1.20-3.40); #Monocytes 0.7 thou/uL (0.11-0.59); #Neutrophils 9.8 thou/uL (1.40-6.50); %Basophils 0.1 % (0.0-1.0); %Eosinophils 0.3 % (0.0-10.0); %Lymphocytes 7.2 % (21.0-51.0); %Monocytes 6.1 % (0.0-10.0); %Neutrophils 86.4 % (42.0-75.0); Hemoglobin 10.7 g/dL (14.0-18.0); Mean Corpuscular HGB CONC 32.2 g/dL (32.0-36.0); Mean Corpuscular Hemoglobin 31.8 pg (27.0-31.0); Mean Corpuscular Volume 98.7 fl (80.0-94.0); Mean Platelet Volume 8.3 fL (7.4-10.4); Platelet Count 273 thou/uL (130-400); RBC Distribution Width 15.7 % (11.5-14.5); Red Blood Cell (RBC) Count 3.35 mill/uL (4.70-6.10); White Blood Cell (WBC) Count 11.3 thou/uL (4.8-10.8)
[2017-09-28 05:45] LABS: Anion Gap 13 mmol/L (10-20); BUN (Urea Nitrogen) 26 mg/dL (8.4-25.7); Calc. Creatinine Clearance 42 mL/min (70-130); Calcium 7.3 mg/dL (7.8-10.44); Carbon Dioxide 23 mmol/L (23-31); Chloride 102 mmol/L (98-107); Estimated GFR-MDRD 71; Glucose 81 mg/dL (83-110); Potassium 4.3 mmol/L (3.5-5.1); Sodium 134 mmol/L (136-145)
[2017-09-28] MEDS: Furosemide 20 MG/2 ML VIAL SLOW IVP SCH (05:50)
[2017-09-28] MEDS: Levothyroxine Sodium 100 MCG TAB PO SCH (05:51)
--- NOTE | 2017-09-28 06:40 | PDOC.FM ---
- Subjective Subjective: Pt doing well this morning, resting comfortably. No specific complaints. There were no acute events over night. Family reports that pt is at baseline mentation. - Objective MAR Reviewed: Yes Vital Signs & Weight: Vital Signs (12 hours) Temp Pulse Resp BP Pulse Ox 09/28/17 04:00 98.9 F 65 12 167/72 H 93 L 09/27/17 19:15 97.9 F 69 16 139/63 94 L Weight Admit Weight 60.01 kg Weight 57.878 kg I&O: 09/26/17 09/27/17 09/28/17 06:59 06:59 06:59 Intake Total 814 264 7993 Output Total 2300 400 375 Balance -1340 80 1055 Result Diagrams: 09/28/17 04:15 09/28/17 04:15 <Rcoky Lopez - Last Filed: 09/28/17 06:38> - Objective Vital Signs & Weight: Vital Signs (12 hours) Temp Pulse Resp BP BP Pulse Ox 09/28/17 08:40 61 184/74 H 09/28/17 07:32 97.5 F L 61 16 184/74 H 92 L 09/28/17 04:00 98.9 F 65 12 167/72 H 93 L Weight Admit Weight 60.01 kg Weight 57.878 kg I&O: 09/27/17 09/28/17 09/29/17 06:59 06:59 06:59 Intake Total 480 1430 Output Total 400 375 Balance 80 1055 Result Diagrams: 09/28/17 04:15 09/28/17 04:15 <Sulaiman Cabrera - Last Filed: 09/28/17 09:59> Phys Exam - Physical Examination Constitutional: NAD HEENT: PERRLA Neck: no JVD, full ROM Respiratory: clear to auscultation bilateral Cardiovascular: RRR systolic murmur 3/6. Gastrointestinal: soft, non-tender, no distention, positive bowel sounds 2+ pitting edema R LE to ankle Neurological: non-focal Psychiatric: normal affect, A&O x 3 Skin: no rash, normal turgor <Rocky Lopez - Last Filed: 09/28/17 06:38> Dx/Plan (1) Altered mental status Code(s): R41.82 - ALTERED MENTAL STATUS, UNSPECIFIED Status: Resolved Plan: Pt has baseline dementia, however was admitted with acute change. This was most likely multifactoral in nature to include hypertensive urgency and dehydration. Currently back to baseline (2) PVD (peripheral vascular disease) Code(s): I73.9 - PERIPHERAL VASCULAR DISEASE, UNSPECIFIED Status: Chronic Plan: s/p fem-pop bypass, POD 2. Pain is well controlled. Dressing is clean and dry. Appreciate surg recommendations (3) CHF (congestive heart failure) Code(s): I50.9 - HEART FAILURE, UNSPECIFIED Status: Chronic QualifierTitle: Congestive heart failure type: diastolic Plan: Continue home meds. Pt appears to be euvolemic, continue lasix 20 mg IV BID (4) Macrocytic anemia Code(s): D53.9 - NUTRITIONAL ANEMIA, UNSPECIFIED Status: Chronic Plan: Chronic, stable (5) HTN (hypertension) Code(s): I10 - ESSENTIAL (PRIMARY) HYPERTENSION Status: Chronic Plan: Generally controlled on current meds for the past 48 hours. Continue current meds (6) Hypothyroid Code(s): E03.9 - HYPOTHYROIDISM, UNSPECIFIED Status: Chronic Plan: Pt has been restarted on synthroid this hospitalization. follow up outpt for TSH - Plan Plan: -pt at baseline, likely ready for dc from a medical perspective -pending surg recommendation <Rocky Lopez - Last Filed: 09/28/17 06:38> Attending Addendum - Attending Addendum I personally evaluated the patient and discussed the management with Dr. Lopez. I agree with the History, Examination, Assessment and Plan documented above with any addition or exceptions noted below. Patient doing well today. Pain is well controlled from LE bypass surgery. Awaiting further CV recs, but consider discharge if they are signing off. Need to d/c jain and encourage ambulation. No hallucinations, which are chronic for patient. <Sulaiman Cabrera - Last Filed: 09/28/17 09:59>
[2017-09-28] MEDS: Dutasteride 0.5 MG CAP PO SCH (08:34)
[2017-09-28] MEDS: Magnesium Chloride 64 MG TAB PO SCH ×2 (08:40→22:15)
[2017-09-28] MEDS: Insulin Regular 300 UNITS/3 ML VIAL SC PRN ×2 (13:04→17:37)
[2017-09-28] MEDS: Furosemide 40 MG TAB PO SCH (15:13)
--- NOTE | 2017-09-28 16:58 | EKG ---
Test Reason : AMS Blood Pressure : / mmHG Vent. Rate : 064 BPM Atrial Rate : 064 BPM P-R Int : 150 ms QRS Dur : 112 ms QT Int : 426 ms P-R-T Axes : 015 -17 019 degrees QTc Int : 439 ms Electronic atrial pacemaker 1mm ST elevation V1 Confirmed by LOREN BOWEN ([id number]), newspaper editor MANNY REYEZ ([id number]) on 09/28/2017 4:58:00 PM Referred By: ANDRÉS Confirmed By:LOREN BOWEN
[2017-09-28] MEDS: Lisinopril 20 MG TAB PO SCH (17:39)
[2017-09-28] MEDS ORDERED: Furosemide 40 MG TAB PO SCH (21:00)
[2017-09-28] MEDS: Atorvastatin Calcium 20 MG TAB PO SCH (22:15)
[2017-09-29 05:08] LABS: #Eosinphils 0.1 thou/uL (0.0-0.7); #Lymphocytes 1.1 thou/uL (1.20-3.40); #Monocytes 0.7 thou/uL (0.11-0.59); #Neutrophils 8.7 thou/uL (1.40-6.50); %Basophils 0.1 % (0.0-1.0); %Eosinophils 0.8 % (0.0-10.0); %Lymphocytes 9.9 % (21.0-51.0); %Monocytes 6.9 % (0.0-10.0); %Neutrophils 82.3 % (42.0-75.0); Hemoglobin 10.1 g/dL (14.0-18.0); Mean Corpuscular HGB CONC 31.7 g/dL (32.0-36.0); Mean Corpuscular Hemoglobin 31.4 pg (27.0-31.0); Mean Corpuscular Volume 98.9 fl (80.0-94.0); Mean Platelet Volume 8.2 fL (7.4-10.4); Platelet Count 277 thou/uL (130-400); RBC Distribution Width 15.6 % (11.5-14.5); Red Blood Cell (RBC) Count 3.23 mill/uL (4.70-6.10); White Blood Cell (WBC) Count 10.6 thou/uL (4.8-10.8)
[2017-09-29 05:35] LABS: Anion Gap 9 mmol/L (10-20); BUN (Urea Nitrogen) 26 mg/dL (8.4-25.7); Calc. Creatinine Clearance 50 mL/min (70-130); Calcium 7.1 mg/dL (7.8-10.44); Carbon Dioxide 28 mmol/L (23-31); Chloride 100 mmol/L (98-107); Estimated GFR-MDRD 85; Glucose 163 mg/dL (83-110); Sodium 133 mmol/L (136-145)
[2017-09-29] MEDS: Levothyroxine Sodium 100 MCG TAB PO SCH (05:56)
--- NOTE | 2017-09-29 07:40 | PDOC.FM ---
- Subjective Subjective: Patient resting comfortably this morning. Family reports he did well overnight with no hallucinations. He is not c/o pain at the surgical site. - Objective MAR Reviewed: Yes Vital Signs & Weight: Vital Signs (12 hours) Temp Pulse Resp BP Pulse Ox 09/29/17 04:00 97.7 F 61 16 156/66 H 95 09/28/17 20:00 97.9 F 62 18 131/61 92 L Weight Admit Weight 60.01 kg Weight 58.513 kg I&O: 09/28/17 09/29/17 09/30/17 06:59 06:59 06:59 Intake Total 1430 740 Output Total 375 1300 Balance 1055 -560 Result Diagrams: 09/29/17 04:15 09/29/17 04:15 <Jeb Duggan C - Last Filed: 09/29/17 07:38> - Objective Vital Signs & Weight: Vital Signs (12 hours) Temp Pulse Resp BP Pulse Ox 09/29/17 04:00 97.7 F 61 16 156/66 H 95 Weight Admit Weight 60.01 kg Weight 58.513 kg I&O: 09/28/17 09/29/17 09/30/17 06:59 06:59 06:59 Intake Total 1430 740 Output Total 375 1300 Balance 1055 -560 Result Diagrams: 09/29/17 04:15 09/29/17 04:15 <Sulaiman Cabrera - Last Filed: 09/29/17 10:12> Phys Exam - Physical Examination Constitutional: NAD HEENT: moist MMs Respiratory: no wheezing, no rales Cardiovascular: RRR, no significant murmur Gastrointestinal: soft, non-tender Musculoskeletal: pulses present leg dressing is clean, dry, intact <Jeb Duggan C - Last Filed: 09/29/17 07:38> Dx/Plan (1) Altered mental status Code(s): R41.82 - ALTERED MENTAL STATUS, UNSPECIFIED Status: Resolved Plan: Patient has a 2 year history of memory difficulties attributed to dementia. He began having hallucinations roughly six months ago. His AMS is likely multifactorial. TSH was grossly elevated in June and he has not been compliant with medication. He was volume down on admission, so dehydration was a contributing factor. There is also likely a vascular component to his waxing and waning mentation. Elevations in blood pressure correlate with alteration in mental status. Patient is back to baseline this morning and will likely improve with continued medication adherence. (2) PVD (peripheral vascular disease) Code(s): I73.9 - PERIPHERAL VASCULAR DISEASE, UNSPECIFIED Status: Chronic Plan: s/p L AKA POD #3 from Fem-pop bypass on right leg patient tolerated procedure well continue to monitor (3) Diastolic congestive heart failure with preserved left ventricular function , NYHA class 2 Code(s): I50.30 - UNSPECIFIED DIASTOLIC (CONGESTIVE) HEART FAILURE Status: Chronic Plan: BNP of 1517 on admission Continue home medications with Lasix 20mg IV BID Strict I/O's (4) HLD (hyperlipidemia) Code(s): E78.5 - HYPERLIPIDEMIA, UNSPECIFIED Status: Chronic Plan: continue atorvastatin (5) HTN (hypertension) Code(s): I10 - ESSENTIAL (PRIMARY) HYPERTENSION Status: Chronic Plan: Patient mildly hypertensive overnight, likely his normal range (6) Hypothyroid Code(s): E03.9 - HYPOTHYROIDISM, UNSPECIFIED Status: Chronic Plan: Patient has been noncompliant with synthroid. We will restart home dose in hospital (7) Macrocytic anemia Code(s): D53.9 - NUTRITIONAL ANEMIA, UNSPECIFIED Status: Chronic - Plan Plan: Plan: -d/c jain -discharge if UO appropriate <Jeb Duggan - Last Filed: 09/29/17 07:38> Attending Addendum - Attending Addendum I personally evaluated the patient and discussed the management with Dr. Duggan. I agree with the History, Examination, Assessment and Plan documented above with any addition or exceptions noted below. Patient stable. Has been cleared for d/c by CV surg. Apparently does not qualify for Rehab or SNF based on finances. Will discuss care with family and likely home with HH and PT this afternoon. <Sulaiman Cabrera - Last Filed: 09/29/17 10:12>
[2017-09-29] MEDS: Furosemide 40 MG TAB PO SCH ×2 (09:36→15:03)
[2017-09-29] MEDS: Dutasteride 0.5 MG CAP PO SCH (09:36)
[2017-09-29] MEDS: Magnesium Chloride 64 MG TAB PO SCH (09:36)
[2017-09-29] MEDS: Insulin Regular 300 UNITS/3 ML VIAL SC PRN (12:23)
[2017-09-29 12:55] VITALS: BP 151/70; TEMP 98.5
--- NOTE | 2017-09-30 14:44 | DIS-2 ---
DATE OF ADMISSION: 09/23/2017 DATE OF DISCHARGE: 09/29/2017 RESIDENT: Jeb Duggan MD ADMITTING ATTENDING: Sulaiman Cabrera MD DISCHARGE ATTENDING: Sulaiman Cabrera MD CONSULTATION: Cardiovascular Surgery. PROCEDURES: 1. CT brain showing no acute intracranial process. 2. Ankle x-ray showing ankle mortise maintained. No fracture, dislocation, or bony destruction obse rved. 3. Lower extremity arterial Doppler showing abnormal waveforms throughout the right lower extremity with only monophasic waveforms. Recommend CT angio with runoff. 4. Abdominal aortogram with external iliac artery angiogram with right leg runoff. 5. Femoral popliteal bypass performed by Cardiovascular Surgery. PRIMARY DIAGNOSES: 1. Vascular encephalopathy. 2. Diastolic congestive heart failure exacerbation. 3. Hypothyroidism. 4. Hypertension. SECONDARY DIAGNOSES: 1. Underlying dementia with hallucinations. 2. Depression. 3. Peripheral vascular disease. 4. Macrocytic anemia. 5. Hypomagnesemia. 6. Diabetes. DISCHARGE MEDICATIONS: 1. Toprol 50 mg p.o. daily. 2. Lisinopril 40 mg p.o. daily. 3. Atorvastatin 10 mg p.o. daily. 4. Avodart 0.5 mg p.o. daily. 5. Plavix 75 mg p.o. daily. 6. Clonidine 0.2 mg p.o. b.i.d. 7. Glyburide/metformin 5 mg/500 mg, 1 tab p.o. b.i.d. 8. Aspirin 81 mg p.o. daily. 9. Synthroid 100 mcg p.o. daily. 10. Magnesium chloride 64 mg p.o. b.i.d. 11. Magnesium oxide 400 mg p.o. daily. 12. Metformin 1000 mg p.o. b.i.d. 13. Sertraline 25 mg p.o. daily. 14. Furosemide 40 mg p.o. b.i.d. DISCONTINUED MEDICATIONS: None. HISTORY OF PRESENT ILLNESS/HOSPITAL COURSE: An 87-year-old male with a past medical history of demen tia for the last several years with hallucinations for the last 6-8 months presenting with generalize d weakness and altered mental status. The patient was in the ER and was very confused and was admitt ed for further workup for encephalopathy. The patient's TSH was found to be grossly elevated due to medication noncompliance. After controlling blood pressure and restarting home medications, the ari ent's mentation returned to normal. His encephalopathy was likely multifactorial with hypoxia, hypot hyroidism, and hypertension contributing equally to the picture. 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 While he was in the hospital, CV Surgery was consulted a nd did a CTA with runoff showing a need for femoral/popliteal bypass surgery. The surgery was perfor med. No complications. Dr. Virgen is the patient's CV surgeon and cleared the patient to return home before discharge. DISPOSITION: Stable. DISCHARGE INSTRUCTIONS: 1. Location: Home. 2. Diet: Heart healthy. 3. Activity: As tolerated. 4. Followup: Follow up with PCP in 7 to 10 days. Follow up with CV surgeon, Dr. Virgen, in 10 to 14 days.
== END 2017-09-29 15:25 | disposition home health service (06) | DRG 628 ==
LOC: ERS 21:07 → ERHOLD 09-23 02:02 → 2NO 09-23 14:56 → CCU 09-26 06:24 → 2NO 09-26 06:51
PROVIDERS: ADMIT Family Medicine; ATTEND Family Medicine
PROC: B4101ZZ Fluoroscopy of Abdominal Aorta using Low Osmolar Contrast (ICD-10-PCS; 2017-09-24)
PROC: B41C1ZZ Fluoroscopy of Pelvic Arteries using Low Osmolar Contrast (ICD-10-PCS; 2017-09-24)
PROC: 041K0JL Bypass Right Femoral Artery to Popliteal Artery with Synthetic Substitute, Open Approach (ICD-10-PCS; principal; 2017-09-26)
DX: E03.9 Hypothyroidism, unspecified (principal); I50.33 Acute on chronic diastolic (congestive) heart failure; G93.49 Other encephalopathy; L97.819 Non-pressure chronic ulcer of other part of right lower leg with unspecified severity; E83.42 Hypomagnesemia; D53.9 Nutritional anemia, unspecified; E11.9 Type 2 diabetes mellitus without complications; E86.0 Dehydration; I16.0 Hypertensive urgency; R09.02 Hypoxemia; F03.90 Unspecified dementia, unspecified severity, without behavioral disturbance, psychotic disturbance, mood disturbance, and anxiety; I11.0 Hypertensive heart disease with heart failure; I35.0 Nonrheumatic aortic (valve) stenosis; I70.238 Atherosclerosis of native arteries of right leg with ulceration of other part of lower leg; R44.1 Visual hallucinations; Z91.14 Patient's other noncompliance with medication regimen; Z95.0 Presence of cardiac pacemaker; Z89.612 Acquired absence of left leg above knee; Z79.02 Long term (current) use of antithrombotics/antiplatelets; Z79.82 Long term (current) use of aspirin; Z79.84 Long term (current) use of oral hypoglycemic drugs; Z79.899 Other long term (current) drug therapy
CPT/HCPCS: 36415; 36416; 51702; 70450; 71045; 72125; 75630; 75710; 76870; 76942; 80048; 80053; 80306; 81003; 82140; 82550; 82553; 82805; 83605; 83690; 83735; 83880; 84439; 84443; 84484; 85025; 85652; 86780; 86850; 86900; 86901; 87040; 87077; 87086; 87186; 93005; 93923; 93976; 96361; 96365; 96374; 96375; 99152; A4216; C1769; G8978-GP-CN; G8979-GP-CK; G8987-GO-CL; G8988-GO-CK; G8996-GN-CK; G8997-GN-CI; J0360; J0696; J1100; J1642; J1644; J1650; J1815; J1940; J2001; J2250; J2405; J2704; J2720; J3010; J3475; J3480; J7050

== ENCOUNTER 2017-10-26 17:11 | Inpatient (IN) | payer MEDICARE ==
[2017-10-26 18:12] LABS: Hemoglobin 11.2 g/dL (14.0-18.0); Mean Corpuscular HGB CONC 31.4 g/dL (32.0-36.0); Mean Corpuscular Hemoglobin 31.3 pg (27.0-31.0); Mean Corpuscular Volume 99.6 fl (80.0-94.0); Mean Platelet Volume 9.3 fL (7.4-10.4); Platelet Count 285 thou/uL (130-400); RBC Distribution Width 16.1 % (11.5-14.5); Red Blood Cell (RBC) Count 3.59 mill/uL (4.70-6.10); White Blood Cell (WBC) Count 12.5 thou/uL (4.8-10.8)
[2017-10-26 18:14] LABS: Bilirubin Small (Negative); Blood, Urine Negative (Negative); Clarity CLOUDY (Clear); Glucose, Urine (Dipstick) Negative (Negative); Leukocyte Moderate (Negative); Nitrite Negative (Negative); Protein, Urine (Dipstick) Negative (Neg-Trace)
[2017-10-26 18:16] LABS: Bacteria/HPF Rare-Few HPF (None Seen); Pathc Cast-AUWi Flag 2.43 (0-2.49); Squamous Epithelial None Seen HPF (0-3); WBC/HPF 21-50 HPF (0-3)
[2017-10-26 18:17] LABS: Yeast-AUWi Flag 79.5 (0-25.0)
[2017-10-26 18:27] LABS: ALT (SGPT) 13 U/L (8-55); AST (SGOT) 22 U/L (5-34); Albumin 2.3 g/dL (3.4-4.8); Alkaline Phosphatase 101 U/L (40-150); Anion Gap 17 mmol/L (10-20); BUN (Urea Nitrogen) 72 mg/dL (8.4-25.7); Bilirubin, Total 0.4 mg/dL (0.2-1.2); Calc. Creatinine Clearance 0 mL/min (70-130); Calcium 7.8 mg/dL (7.8-10.44); Carbon Dioxide 20 mmol/L (23-31); Chloride 107 mmol/L (98-107); Estimated GFR-MDRD 23; Globulin 3.5 g/dL (2.4-3.5); Glucose 304 mg/dL (83-110); Lipase 31 U/L (8-78); Potassium 5.9 mmol/L (3.5-5.1); Protein, Total 5.8 g/dL (5.8-8.1); Sodium 138 mmol/L (136-145)
[2017-10-26 18:27] LABS: RBC/HPF 0-3 HPF (0-3)
[2017-10-26 18:28] LABS: Other Casts/LPF None Seen LPF (0-3 Hyaline); Yeast-All Forms 2+ HPF (None Seen)
[2017-10-26 18:32] LABS: CKMB 3.7 ng/mL (0-6.6); Troponin I 0.026 ng/mL (< 0.028)
[2017-10-26 18:51] LABS: Anisocytosis SLIGHT = 6-15 cells (100X) (0-5/hpf); Band 31 % (5-11); Hypochromia SLIGHT = 6-15 cells (100X) (0-5/hpf); Lymphocytes 5 % (21-51); MDiff Complete? YES; Monocytes 2 % (0-10); Neutrophil 62 % (42-75); PLT Morphology Comment Appears Adequate
[2017-10-26] MEDS ORDERED: Cefepime 2 GM/10 ML SYR ONE (19:20)
--- NOTE | 2017-10-26 20:24 | RAD ---
PORTABLE AP CHEST X-RAY 10/26/17 HISTORY: Dyspnea and decreased appetite for one week. Abdominal pain. COMPARISON: 09/26/17. FINDINGS: Dual lead left subclavian cardiac pacemaking device remains in place. Surgical clips again overlie th e right hilar region and lower mediastinum. The cardiac silhouette is magnified by projection. Dense calcifications are seen involving the mitral valve annulus. The cardiac silhouette and pulmonary vasc ulature are within normal limits. There is mild asymmetric right apical pleural and parenchymal scarr ing. Radiopaque suture material overlies the right hilar region. Deformity of a right lateral rib wit h cerclage wires again noted in placed. There is mild increased interstitial densities at each lung b ase similar to the prior study and may be related to mild chronic lung changes. The right subclavian central venous catheter has been removed. No other interval change. IMPRESSION: Mild chronic lung changes without evidence of an acute cardiopulmonary process. POS: [facility]
[2017-10-26] MEDS ORDERED: Ondansetron ODT 4 MG TAB SL PRN (21:44)
[2017-10-26] MEDS ORDERED: Ondansetron HCl/PF 4 MG/2 ML Vial IVP PRN (21:44)
[2017-10-26] MEDS ORDERED: Acetaminophen 325 MG TAB PO PRN (21:44)
[2017-10-26] MEDS ORDERED: Sodium Chloride 0.9% 1,000 ML IV SCH (21:44)
[2017-10-26 22:03] LABS: Troponin I 0.035 ng/mL (< 0.028)
[2017-10-26 22:23] LABS: Lactic Acid 4.1 mmol/L (0.5-2.2)
[2017-10-27 02:30] LABS: Troponin I 0.029 ng/mL (< 0.028)
[2017-10-27] MEDS: cloNIDine 0.2 MG TAB PO SCH (09:00)
[2017-10-27] MEDS: Dutasteride 0.5 MG CAP PO SCH (09:00)
[2017-10-27] MEDS ORDERED: Dextrose 5% in Water 1,000 ML IV PRN (09:06)
[2017-10-27] MEDS ORDERED: Insulin Regular 300 UNITS/3 ML VIAL SC PRN (09:06)
[2017-10-27] MEDS ORDERED: Sodium Chloride 0.9% 1,000 ML IV SCH (09:15)
--- NOTE | 2017-10-27 09:19 | HP ---
DATE OF ADMISSION: 10/27/2017 RENZO Ortiz dictating for Chris Duggan M.D. REASON FOR ADMISSION: Abdominal discomfort and diarrhea. HISTORY OF PRESENT ILLNESS: This is an 87-year-old gentleman, who was recently admitted to [facility] for a long-term care. Began having abdominal discomfort with diarrhea. An abdominal ultrasound was ordered; however, that cannot be done stat and family wanted him to come to the hospital just to francisco e sure he was okay. Upon evaluation, he was found to have a UTI, and therefore admitted [facility] for further evaluation and treatment. Currently, the patient is awake. He does not have denture s. He is hard to understand. He mumbles and there is no family here for questioning. Most of the h istory was obtained from old records. PAST MEDICAL HISTORY: 1. Hypertension. 2. Diastolic congestive heart failure. 3. Diabetes, type 2. 4. Aortic stenosis. 5. Hyperlipidemia. 6. Hypothyroidism. 7. Depression. 8. Anxiety. 9. History of vascular encephalopathy. PAST SURGICAL HISTORY: 1. Ulcer surgery in the past. 2. Right lung biopsy. 3. Left kpvqx-bqh-qfnj amputation. 4. He does have a history of pacemaker implantation. 5. He does have a history of recent fem-pop in 09/2017 for PVD. ALLERGIES: None. MEDICATIONS: 1. Metformin 500 mg b.i.d. 2. Plavix 75 mg every day. 3. Clonidine 0.2 mg every day. 4. Atorvastatin 40 mg at bedtime. 5. Avodart 0.5 mg every day. 6. Aspirin 81 mg every day. 7. Levothyroxine 100 mg daily. 8. Sertraline 25 mg every day. SOCIAL HISTORY: No tobacco or alcohol use. FAMILY HISTORY: Noncontributory. REVIEW OF SYSTEMS: Hard to obtain due to the patient not having dentures. He mumbles his speech, an d there is no family here for questioning. PHYSICAL EXAMINATION: GENERAL: Upon evaluation, he is awake. He seems to be alert. VITAL SIGNS: Blood pressure is 150/55, pulse 60, respirations 16, he is afebrile. NECK: Supple with no increased JVP or carotid bruit. Carotid had good upstroke, no thyromegaly. CARDIOVASCULAR: Regular rate and rhythm. He has a pacemaker. CHEST: Symmetrical. Clear to auscultation and percussion upper lobes. ABDOMEN: Soft, obese, nontender with normoactive bowel sounds. No bruits or organomegaly. EXTREMITIES: In his right groin, he has got an incision that slightly dehisced with yellow pus. He also has another incision down his right leg. This nicely healed. He has a faint pedal pulse. Also , he has a left oxjuk-wcy-cmca amputation. NEUROLOGIC: He is awake and seems to be alert and oriented. LABORATORY DATA: Actually his UA is positive for moderate leukocyte and white blood cell 21-50. His BUN is 72, creatinine 2.64, glucose is 300. BNP 1308. Cardiac enzymes are normal. H and H is 11.2 and 35.7. White blood cells 12.5. ASSESSMENT: 1. Acute kidney injury. 2. Dehydration. 3. Urinary tract infection. 4. Abdominal discomfort, could be from urinary tract infection. 5. Diarrhea, questionable etiology. 6. Diabetes. 7. Hypertension. 8. Hyperlipidemia. 9. Recent fem-pop. 10. Hypothyroidism. 11. Depression. 12. Vascular encephalopathy. 13. Multiple medical problems. 14. Dehiscent wound on right groin. PLAN: 1. Patient will have a CBC, CMP, hemoglobin A1c, TSH, and lipid profile in the morning. We will als o check a wound culture of his right groin. We will also ask wound care to come see the patient in c onsultation. We will also begin Rocephin 1 gram IV q.24 hours. 2. We will check blood sugars accordingly. 3. We will check a stool Clostridium difficile. 4. We will resume his home medications. 5. We will get a physical therapy consultation. 6. The speech language pathology to assess his swallowing. 7. We will also turn the patient every 2 hours and perform routine vital signs. The patient verbalized understanding, and all questions answered to his satisfaction.
[2017-10-27] MEDS ORDERED: cefTRIAXone\\ROCEPHIN 1 GM, Syringe 0.4 ML in Sterile Water 9.6 ML SLOW IVP SCH (10:00)
[2017-10-27] MEDS ORDERED: Levothyroxine Sodium 100 MCG TAB PO SCH (10:00)
[2017-10-27] MEDS ORDERED: metFORMIN 500 MG TAB PO SCH ×3 (10:00→17:00)
[2017-10-27] MEDS ORDERED: Vancomycin HCl 750 MG in Sodium Chloride 0.9% 250 ML 250 ML IVPB SCH (11:00)
[2017-10-27] MEDS: Dextrose 50% Abboject 50 ML SYRINGE IVP PRN (11:02)
[2017-10-27] MEDS ORDERED: Dextrose 5 % And 0.9 % NaCl 1,000 ML IV SCH (13:30)
[2017-10-27 13:43] LABS: Actual Bicarbonate (HCO3a) 19.6 mEq/L (22-26); Base Excess (BEa) -5.2 mEq/L (0 (+/-) 2.5); CO2 Tension 35.6 mmHg (35.0-45.0); Calcium, Ionized 1.1 mmol/L (1.12-1.30); Hematocrit-ABG 30.1 % (42.0-52.0); Hemoglobin (Hb) 9.1 g/dL (14.0-18.0); O2 Tension (PaO2) 192.7 mmHg (80.0-100.0); Puncture Site LBA; pH, Arterial 7.36 (7.35-7.45)
[2017-10-27] MEDS: Dextrose 5 % And 0.9 % NaCl 1,000 ML IV SCH (14:00)
--- NOTE | 2017-10-27 15:27 | RAD ---
AP CHEST: Indication: Poor oxygenation, lethargy. Comparison: 10-27-15 FINDINGS: Chronic lung changes are similar. Dual-lead pacemaker is unchanged. Post-surgical changes involving t he right upper lobe is stable. Osseous structures are unchanged. Cerclage wire involving the left colette st wall is similar appearing. IMPRESSION: Stable chronic lung changes. No definite acute abnormality. POS: [facility]
[2017-10-27] MEDS ORDERED: Lactated Ringer's 1,000 ML IV SCH (17:15)
[2017-10-27] MEDS ORDERED: predniSONE 20 MG TAB PO SCH (17:45)
[2017-10-27] MEDS ORDERED: Vancomycin HCl 0.75 GM in Premix Bag 1 BAG IVPB SCH (21:00)
[2017-10-27] MEDS: Piperacillin/Tazobactam 2.25 GM in Sodium Chloride 0.9% 100 ML IVPB SCH (21:37)
[2017-10-27] MEDS: Atorvastatin Calcium 40 MG TAB PO SCH (21:37)
[2017-10-28] MEDS: Vancomycin HCl 750 MG in Sodium Chloride 0.9% 250 ML 250 ML IVPB SCH ×2 (00:09→14:03)
--- NOTE | 2017-10-28 00:22 | CON ---
DATE OF CONSULTATION: 10/26/2017 SERVICE: Pulmonary Medicine. REASON FOR CONSULTATION: ICU patient. HISTORY OF PRESENT ILLNESS: The patient is an 87-year-old male with past medical history significant for dementia. A couple of weeks ago, he came to the hospital with increasing shoulder discomfort and leg discomfort. An GEOVANY was performed demonstrated lack of flow to the legs. He underwent a revascularization procedure. Ultimately, the discomfort that he was experiencing is shoulders and legs never really improved. He went home with his family, but ultimately they could not take care of him and they sent him to a nursing facility. At the nursing facility, he had a lack of appetite for the last week. He had some intermittent abdominal discomfort, the same shoulder discomfort and leg discomfort. He became increasingly dehydrated. He became more somnolent and was subsequently brought to the emergency department. He cannot provide any additional elements of the history as he is currently encephalopathic. He was initially placed in the telemetry unit. They did not have a good IV established. He was not able to get any resuscitate or fluids. As such, suraj apple was called and he was subsequently brought to the [facility]. He looks to be in no distress, but is a little restless. PAST MEDICAL HISTORY: 1. Peripheral vascular disease, status post recent revascularization procedure to the bilateral lower extremities. 2. Hypertension. 3. Dyslipidemia. 4. Type 2 diabetes mellitus. 5. Chronic diastolic heart failure. 6. Aortic stenosis. 7. Hypothyroidism. 8. Anxiety disorder. 9. Major depressive disorder. 10. Dementia. PAST SURGICAL HISTORY: 1. Surgical intervention for ulcer disease. 2. Right lung biopsy. 3. Left above knee amputation. 4. Pacemaker implantation. 5. Recent fem-pop bypass in 09/2017 for peripheral vascular disease. ALLERGIES: No known drug allergies. MEDICATIONS: List of his inpatient medications were reviewed. Multiple updates were made. SOCIAL HISTORY: Negative for alcohol, tobacco or illicit drug use. He is currently living in a nursing facility. He has no exposure to chemicals, dusts , asbestosis or tuberculosis. FAMILY HISTORY: Noncontributory. REVIEW OF SYSTEMS: This cannot be obtained as the patient is currently encephalopathic. PHYSICAL EXAMINATION: VITAL SIGNS: Afebrile, pulse 60, blood pressure 106/51, respirations 16, saturation 100% on 2 liters nasal cannula. GENERAL: The patient is awake and alert. He is encephalopathic and can answer any questions. He is following some simple commands. HEENT: Normocephalic, atraumatic. Sclerae are white. Conjunctivae pink. Oral and nasal mucosa is dry. He has temporal wasting. LUNGS: Decent air entry without prolonged expiratory phase. There is some rhonchi present, but clear with cough. No prolonged expiratory phase, wheezing or crackles are appreciated. HEART: Normal rate, regular. ABDOMEN: Soft, nontender, nondistended. Bowel sounds are positive. MUSCULOSKELETAL: No cyanosis or clubbing. There is no pitting in the bilateral lower extremities. Left is surgically absent above the knee. GENITOURINARY: Nobles catheter in place. LABORATORY DATA: Sodium 138, potassium 5.9, bicarbonate 20, anion gap 17, creatinine 2.64 above baseline of less than 1, BUN 72. Glucose 300, which is improved to 166. Lactate was 3.8, but has now improved to 4.1. AST and ALT are normal. BNP 1300, troponin 0.026 and up trending. Liver function studies are otherwise unremarkable. Urinalysis is essentially unremarkable. Blood cultures are growing gram positive rods in 1 out of 2. The right groin culture has few gram positive cocci in pairs and few white blood cells. IMAGING: Chest x-ray demonstrates chronic changes without acute cardiopulmonary abnormality. ASSESSMENT: 1. Severe sepsis. 2. Metabolic encephalopathy. 3. Right groin inflammatory changes, mild. 4. Acute kidney injury. 5. Dehydration, severe. 6. Diarrhea. 7. Peripheral vascular disease, status post recent procedure. PLAN: We will hydrate the patient with a liter of lactated Ringer's. I will then run some gentle hydration. He will remain in the ICU for the time being. Truth be told, he is stable for transition back to the floor. Ultimately, we have a solorio culture that is pending. I will empirically put him on vancomycin and Zosyn directed at most abdominal pathology. I will put him on a small dose of steroids as he has symptoms that could very well be consistent with polymyalgia rheumatica, though it is tough to tell in an acute inflammatory setting. Pulmonary Critical Care will continue to follow in this location. 70 minutes have been devoted to this patient in various activities. I personally reviewed all imaging studies and laboratory data noted within this document. For greater than fifty percent of this time, I was interacting with the patient at the bedside or coordinating care with the care team. For the remainder of the time I was immediately available to the patient in the hospital unit. MONI
[2017-10-28 04:43] LABS: Hemoglobin A1c 5.6 % (4.0-6.0)
[2017-10-28 04:56] LABS: Band 9 % (5-11); Hemoglobin 9.5 g/dL (14.0-18.0); Lymphocytes 2 % (21-51); MDiff Complete? YES; Mean Corpuscular HGB CONC 32.3 g/dL (32.0-36.0); Mean Corpuscular Hemoglobin 31.6 pg (27.0-31.0); Mean Corpuscular Volume 98.1 fl (80.0-94.0); Mean Platelet Volume 8.8 fL (7.4-10.4); Monocytes 1 % (0-10); Neutrophil 88 % (42-75); Platelet Count 247 thou/uL (130-400); RBC Distribution Width 15.8 % (11.5-14.5); White Blood Cell (WBC) Count 12.3 thou/uL (4.8-10.8)
[2017-10-28 04:59] LABS: ALT (SGPT) 15 U/L (8-55); AST (SGOT) 17 U/L (5-34); Alkaline Phosphatase 88 U/L (40-150); Anion Gap 11 mmol/L (10-20); BUN (Urea Nitrogen) 68 mg/dL (8.4-25.7); Bilirubin, Total 0.3 mg/dL (0.2-1.2); Calc. Creatinine Clearance 23 mL/min (70-130); Calcium 7.1 mg/dL (7.8-10.44); Carbon Dioxide 22 mmol/L (23-31); Cardiac Risk 2.4 (Less than 4.5); Chloride 114 mmol/L (98-107); Cholesterol 85 mg/dl (< 200 Desired); Estimated GFR-MDRD 42; Globulin 2.7 g/dL (2.4-3.5); Glucose 216 mg/dL (83-110); HDL Cholesterol 36 mg/dL (>60 Neg Risk); LDL Cholesterol, Calculated 35 mg/dL; Potassium 4.4 mmol/L (3.5-5.1); Protein, Total 4.7 g/dL (5.8-8.1); Sodium 143 mmol/L (136-145); Triglycerides 72 mg/dL (Less than 150)
[2017-10-28] MEDS: Levothyroxine Sodium 100 MCG TAB PO SCH (06:03)
[2017-10-28] MEDS: Dextrose 5 % And 0.9 % NaCl 1,000 ML IV SCH (06:03)
[2017-10-28] MEDS: Piperacillin/Tazobactam 2.25 GM in Sodium Chloride 0.9% 100 ML IVPB SCH ×3 (06:03→21:09)
[2017-10-28] MEDS: Insulin Regular 300 UNITS/3 ML VIAL SC PRN (06:04)
[2017-10-28] MEDS: predniSONE 20 MG TAB PO SCH (09:15)
[2017-10-28] MEDS: cloNIDine 0.2 MG TAB PO SCH (09:15)
[2017-10-28] MEDS: Clopidogrel Bisulfate 75 MG TAB PO SCH (09:16)
[2017-10-28] MEDS: Dutasteride 0.5 MG CAP PO SCH (09:16)
--- NOTE | 2017-10-28 11:03 | PRG ---
DATE OF SERVICE: 10/28/2017 SERVICE: Pulmonary Medicine INTERVAL HISTORY: The patient is doing really well from a respiratory standpoint. He is breathing c omfortably. He is not coughing up any sputum. His strength looks a little better today. Otherwise, there has been no interval change to his condition. He denies any current fevers, chills, nausea or vomiting. He had some back pain overnight. When I looked at the spot where the pain was, the telem etry monitor was lying directly under his spine and he could not get off it. When I removed this, he suggested that his back pain had resolved and he felt much better. PHYSICAL EXAMINATION: VITAL SIGNS: Afebrile, pulse 66, blood pressure 93/36, respirations 20, saturation 98% on 2 liters n john cannula. GENERAL: The patient is awake and alert, in no apparent distress. LUNGS: Decent air entry. There is no prolonged expiratory phase or wheezing present. HEART: Normal rate, regular. ABDOMEN: Soft, nontender, nondistended. Bowel sounds are positive. MUSCULOSKELETAL: No cyanosis or clubbing. No pitting in the bilateral lower extremities. NEUROLOGIC: Grossly nonfocal. LABORATORY DATA: WBC 12.3, hemoglobin 9.5, platelets 247,000. Neutrophil count 88%, but the band co unt has improved to 9%. Creatinine 1.58 and beautifully down trending, BUN 68 is also improving. So dium 143, chloride 114. Basic metabolic profile is otherwise unremarkable. Liver function studies a re unremarkable. TSH is 9.52. Right groin is growing gram negative kendall, and gram positive cocci. B lood cultures are growing bacillus species in 1 of 2. C. diff antigen and toxin are negative, lactof heladio was positive. ASSESSMENT: 1. Severe sepsis. 2. Metabolic encephalopathy. 3. Dementia. 4. Acute kidney injury, improving. 5. Dehydration, severe, but improving. 6. Diarrhea. 7. Peripheral vascular disease, status post recent procedure. ASSESSMENT AND PLAN: I will continue our gentle hydration. We will give him half normal saline at 0 0 an hour over the next 24 hours. He remains stable for transition back to the medical unit. Brown cu ltures currently pending. We have him on empiric antibiotics, but will tailor our therapy if necessa ry. If he has additional bowel movements, we will send off routine stool cultures and evaluate for s ome toxins. Pulmonary Critical Care will continue to follow for the time being.
[2017-10-28] MEDS: Dextrose 5 %-0.45 % NaCl 1,000 ML IV SCH ×2 (14:03→20:30)
--- NOTE | 2017-10-28 15:15 | PQF ---
Date: 10-30-17 ATTN : ELMO ACOSTA / DR. WENDY GAMING Please exercise your independent, professional judgment in responding to the clarification form. Clinical indicators are provided on the bottom of this form for your review Please check appropriate box(s): [ ] Protein Calorie Malnutrition: [ ] Mild [ ] Moderate [ ] Severe [ x ] Cachexia [ ] Other diagnosis [ ] Unable to determine In addition, please specify: Present on Admission (POA): [ x ] Yes [ ] No [ ] Unable to determine CLINICAL INDICATORS - SIGNS / SYMPTOMS / LABS BMI 17.9 ALBUMIN 10-26-17: 2.3 10-28-17: 2.0 REO ASSET MANAGER CONSULT: 10-28-17: patient is from a halfway where he was having a lack of appetite x1 week. He also has been having abdominal discomfort and diarrhea. REO ASSET MANAGER CONSULT 10-28-17: 1. Recommend a Heart Healthy diet type with textures per RAIL SWITCHMAN, leaving off Consistent Carb (1500 kcal) and Renal Low Protein components to promote intake 2. Recommend Suplena once daily to aid with intake once diet ordered 3. Monitor renal function RISK FACTORS: REO ASSET MANAGER CONSULT 10-28-17: Patient has a history of dementia, is unable to provide history, denies any current GI complaints. Per documentation, patient is from a halfway where he was having a lack of appetite x1 week. He also has been having abdominal discomfort and diarrhea. CONSULT NOTE DR. JONES DM 2, DEMENTIA, HTN, L AKA, LACK OF APPETITE FOR THE LAST WK, HE BECAME INCREASINGLY DEHYDRATED, SEVERE DEHYDRATION, DIARRHEA, HE HAS TEMPORAL WASTING, DEPRESSION TREATMENT: REO ASSET MANAGER CONSULT 10-28-17: 1. Recommend a Heart Healthy diet type with textures per RAIL SWITCHMAN, leaving off Consistent Carb (1500 kcal) and Renal Low Protein components to promote intake 2. Recommend Suplena once daily to aid with intake once diet ordered 3. Monitor renal function Moderate Malnutrition (in acute illness) Energy Intake: <75% of estimated energy requirement for > 7 days Weight Loss: 1-2%/1 week; 5%/ 1 month; 7.5%/3 months Other: mild body fat loss; mild muscle mass loss; mild fluid accumulation; Severe Malnutrition (in acute illness) Energy Intake: < 50% of estimated energy requirement for > 5 days Weight Loss: >1-2%/1 week; >5%/1 month; >7.5%/3 months Other: moderate body fat loss; moderate muscle mass loss; moderate- severe fluid accumulation; measurably reduced print finisher strength Moderate Malnutrition (in chronic illness) Energy Intake: <75% of estimated energy requirement for >1 month Weight Loss: 5%/1 month; 7.5%/3 months; 10%/6 months; 20%/1 year Other: mild body fat loss; mild muscle mass loss; mild fluid accumulation Severe Malnutrition (in chronic illness) Energy Intake: <75% of estimated energy requirement for >1 month Weight Loss: >5%/1 month; >7.5%/3 months; >10%/6 months; >20%/1 year Other: severe body fat loss; severe muscle mass loss; severe fluid accumulation ; measurably reduced print finisher strength (This form is maintained as a part of the permanent medical record) 2014 [employer]. All Rights Reserved [email or web address] Office: [phone]
[2017-10-28] MEDS: Dextrose 50% Abboject 50 ML SYRINGE IVP PRN (16:09)
[2017-10-28] MEDS: Atorvastatin Calcium 40 MG TAB PO SCH (20:30)
[2017-10-29] MEDS: Vancomycin HCl 750 MG in Sodium Chloride 0.9% 250 ML 250 ML IVPB SCH (01:21)
[2017-10-29 05:10] LABS: Anion Gap 9 mmol/L (10-20); BUN (Urea Nitrogen) 41 mg/dL (8.4-25.7); Calc. Creatinine Clearance 36 mL/min (70-130); Calcium 7.3 mg/dL (7.8-10.44); Carbon Dioxide 23 mmol/L (23-31); Chloride 118 mmol/L (98-107); Estimated GFR-MDRD 70; Glucose 192 mg/dL (83-110); Sodium 146 mmol/L (136-145)
[2017-10-29] MEDS: Levothyroxine Sodium 100 MCG TAB PO SCH (05:24)
[2017-10-29] MEDS: Piperacillin/Tazobactam 2.25 GM in Sodium Chloride 0.9% 100 ML IVPB SCH ×3 (05:24→21:50)
[2017-10-29] MEDS: Insulin Regular 300 UNITS/3 ML VIAL SC PRN (05:27)
[2017-10-29] MEDS: Dextrose 5 %-0.45 % NaCl 1,000 ML IV SCH ×3 (05:31→20:11)
[2017-10-29 06:14] LABS: Acanthocytes SLIGHT = 1-5 cells (100X) (None Seen); Band 11 % (5-11); Elliptocytes SLIGHT = 2-5 cells (100X) (0-1/hpf); Hemoglobin 8.9 g/dL (14.0-18.0); Lymphocytes 6 % (21-51); MDiff Complete? YES; Mean Corpuscular HGB CONC 31.4 g/dL (32.0-36.0); Mean Corpuscular Hemoglobin 30.2 pg (27.0-31.0); Mean Corpuscular Volume 96.4 fl (80.0-94.0); Mean Platelet Volume 8.4 fL (7.4-10.4); Monocytes 2 % (0-10); Neutrophil 81 % (42-75); Platelet Count 236 thou/uL (130-400); RBC Distribution Width 15.8 % (11.5-14.5); Red Blood Cell (RBC) Count 2.95 mill/uL (4.70-6.10); White Blood Cell (WBC) Count 10.9 thou/uL (4.8-10.8)
--- NOTE | 2017-10-29 08:29 | PRG ---
DATE OF SERVICE: 10/29/2017 SUBJECTIVE: The patient is awake. He is confused. There is no family here at bedside. He failed h is swallow evaluation yesterday. PHYSICAL EXAMINATION: GENERAL: He is awake. He is confused. VITAL SIGNS: Blood pressure is 150/70, pulse 80, respirations 20. He is afebrile. NECK: Supple with no increased JVP or carotid bruit. Carotid had good upstroke with no thyromegaly. COR: Regular rate and rhythm. CHEST: Clear to auscultation and percussion upper lobes. ABDOMEN: Soft, nontender with normoactive bowel sounds. There is no bruit or organomegaly. EXTREMITIES: No edema or cyanosis. He had palpable pedal pulses. SKIN: There is no evidence of ulcers, lesion or rash. NEUROLOGIC: He is awake, but confused. ASSESSMENT: 1. Dehydration, improving. 2. Urosepsis. 3. Dementia. 4. Hypothyroidism. 5. Acute renal injury, improving. 6. Peripheral vascular disease, recent fem-pop surgery. PLAN: The patient will be continued as is. We are waiting for cultures back from his urine. We sammy l also follow up with a CBC and CMP in the morning and iron studies secondary to his anemia. We will also ask Physical Therapy to see the patient in consultation. Also talk to the family regarding his nutrition status as he failed his swallow evaluation.
--- NOTE | 2017-10-29 09:23 | PQF ---
DATE: 10-29-17 ATTN: ELMO ACOSTA Please exercise your independent, professional judgment in responding to the clarification form. Clinical indicators are provided on the bottom of this form for your review Please check appropriate box(s) to clarify if the following diagnosis has been ruled in our ruled out: SEVERE SEPSIS [ x ] Ruled in diagnosis [ ] Continue to treat [ x ] Resolved [ ] Ruled out diagnosis [ ] Other diagnosis [ ] Unable to determine In addition, please specify: Present on Admission (POA): [ x ] Yes [ ] No [ ] Unable to determine For continuity of documentation, please document condition throughout progress notes and discharge summary. Thank You. CLINICAL INDICATORS - SIGNS / SYMPTOMS / LABS ER DOCUMENTATION: DEHYDRATION, ERIK, SEPSIS, UTI H&P: ERIK, DEHYDRATION, UTI, DIARRHEA CONSULT NOTE DR. JONES 10-27-17: SEVERE SEPSIS, METABOLIC ENCEPHALOPATHY PN ELMO ACOSTA-Jay 10-29-17: DEHYDRATION, UROSEPSIS WBC: 10-26-17: 12.5 10-28-17: 12.3 10-29-17: 10.9 BANDS: 10-26-17: 31 LACTIC ACID: 10-26-17: 3.8, 4.1 RISK FACTORS: H&P: DM 2, R GROIN INCISION THAT SLIGHTLY DEHISCED WITH YELLOW PUS NURSE DOCUMENTATION 10-26-17: PU SACRUM, R HEEL CONSULT NOTE DR. JONES 10-26-17: SEVERE SEPSIS, SEVERE DEHYDRATION, R GROIN INFLAMMATORY CHANGES, MILD TREATMENTS: (MAR ) VANCOMYCIN, ZOSYN, IVF (This form is maintained as a part of the permanent medical record) 2014 [employer] All Rights Reserved [email or web address] Office: [phone] [facility] CENTERElliot
[2017-10-29] MEDS: cloNIDine 0.2 MG TAB PO SCH (10:27)
[2017-10-29] MEDS: predniSONE 20 MG TAB PO SCH (10:27)
[2017-10-29] MEDS: Dutasteride 0.5 MG CAP PO SCH (10:28)
[2017-10-29] MEDS: Clopidogrel Bisulfate 75 MG TAB PO SCH (10:28)
[2017-10-29 12:30] LABS: Vancomycin, Trough 21.7 ug/mL
[2017-10-29 13:57] VITALS: BMI 19.2
[2017-10-29] MEDS: Vancomycin HCl 500 MG in Sodium Chloride 0.9% 100 ML IVPB SCH (14:09)
[2017-10-29] MEDS ORDERED: cloNIDine 0.2mg/24 Hour PATCH TD SCH (18:30)
[2017-10-29] MEDS: Atorvastatin Calcium 40 MG TAB PO SCH (20:10)
[2017-10-30] MEDS: Vancomycin HCl 500 MG in Sodium Chloride 0.9% 100 ML IVPB SCH ×2 (00:23→14:13)
[2017-10-30 04:42] LABS: #Lymphocytes 0.7 thou/uL (1.20-3.40); #Monocytes 0.3 thou/uL (0.11-0.59); #Neutrophils 7.9 thou/uL (1.40-6.50); %Eosinophils 0.2 % (0.0-10.0); %Lymphocytes 7.6 % (21.0-51.0); %Monocytes 3.1 % (0.0-10.0); %Neutrophils 89.1 % (42.0-75.0); Hemoglobin 9.2 g/dL (14.0-18.0); Mean Corpuscular HGB CONC 31.2 g/dL (32.0-36.0); Mean Corpuscular Volume 96.3 fl (80.0-94.0); Mean Platelet Volume 8.4 fL (7.4-10.4); Platelet Count 236 thou/uL (130-400); RBC Distribution Width 15.7 % (11.5-14.5); Red Blood Cell (RBC) Count 3.07 mill/uL (4.70-6.10); White Blood Cell (WBC) Count 8.9 thou/uL (4.8-10.8)
[2017-10-30] MEDS: Piperacillin/Tazobactam 2.25 GM in Sodium Chloride 0.9% 100 ML IVPB SCH ×3 (04:51→21:44)
[2017-10-30 04:56] LABS: ALT (SGPT) 13 U/L (8-55); AST (SGOT) 23 U/L (5-34); Albumin 2.1 g/dL (3.4-4.8); Alkaline Phosphatase 97 U/L (40-150); Anion Gap 7 mmol/L (10-20); BUN (Urea Nitrogen) 20 mg/dL (8.4-25.7); Bilirubin, Total 0.4 mg/dL (0.2-1.2); Calc. Creatinine Clearance 51 mL/min (70-130); Calcium 7.3 mg/dL (7.8-10.44); Carbon Dioxide 24 mmol/L (23-31); Chloride 117 mmol/L (98-107); Estimated GFR-MDRD Greater than 90; Globulin 2.9 g/dL (2.4-3.5); Glucose 194 mg/dL (83-110); Iron 33 ug/dL (65-175); Iron Binding Capacity, Total 131 mcg/dL (261-462); Potassium 3.1 mmol/L (3.5-5.1); Sodium 145 mmol/L (136-145)
[2017-10-30] MEDS: Levothyroxine Sodium 100 MCG TAB PO SCH (04:59)
[2017-10-30 05:27] LABS: Folate (Folic Acid) 4.9 ng/mL (7.0-31.4)
--- NOTE | 2017-10-30 07:25 | PRG ---
DATE OF SERVICE: 10/29/2017 SERVICE: Pulmonary Medicine. INTERVAL HISTORY: The patient is doing much better from a cardiovascular and respiratory standpoint. His blood pressures are formed up nicely. He denies any chest pain or shortness of breath. He is not coughing up any sputum. PHYSICAL EXAMINATION: VITAL SIGNS: Afebrile, pulse 70, blood pressure 135/59, respirations 16, saturation 92% on room air. GENERAL: The patient is awake, alert, no apparent distress. LUNGS: Excellent air entry. There is no prolonged expiratory phase or wheezing present. HEART: Normal rate, regular. ABDOMEN: Soft, nontender, and nondistended. Bowel sounds are positive. MUSCULOSKELETAL: No cyanosis or clubbing. There is no pitting in the bilateral lower extremities. NEUROLOGIC: Grossly nonfocal. LABORATORY DATA: WBC 10.9, hemoglobin 8.9, and platelets 236,000. Neutrophil count is 81% with band count which is improving slowly to 11%. Potassium 4.0, sodium 146, chloride 118. Creatinine 1.01 and significantly improving. Calcium 7.3. Right groin is growing multiple organisms. There is 1/2 blood cultures are growing bacillus. C. diff antigen and toxin are negative, but lactoferrin is positive. ASSESSMENT: 1. Severe sepsis, resolving. 2. Metabolic encephalopathy, improving. 3. Dementia, stable. 4. Acute kidney injury, resolved. 5. Dehydration, severe. 6. Diarrhea. 7. Peripheral vascular disease, status post recent procedure. DISCUSSION AND PLAN: The patient is doing fantastic from a hemodynamic and a mentation standpoint. He has absolutely no respiratory issues. He has no further requirements for inpatient Pulmonary or Critical Care opinion, and will sign off. Please call with additional questions or concerns moving forward. MONI
[2017-10-30] MEDS: predniSONE 20 MG TAB PO SCH (07:35)
[2017-10-30] MEDS: Dutasteride 0.5 MG CAP PO SCH (07:36)
[2017-10-30] MEDS: cloNIDine 0.2 MG TAB PO SCH (07:36)
[2017-10-30] MEDS: Clopidogrel Bisulfate 75 MG TAB PO SCH (07:36)
[2017-10-30] MEDS: D5 1/2 NS w/20 mEq KCL 1,000 ML IV SCH ×2 (12:15→20:10)
[2017-10-30] MEDS: Atorvastatin Calcium 40 MG TAB PO SCH (20:10)
[2017-10-31 00:46] LABS: Vancomycin, Trough 19.8 ug/mL
[2017-10-31] MEDS: Vancomycin HCl 500 MG in Sodium Chloride 0.9% 100 ML IVPB SCH ×2 (01:01→13:19)
[2017-10-31 04:43] LABS: Anion Gap 9 mmol/L (10-20); BUN (Urea Nitrogen) 11 mg/dL (8.4-25.7); Calc. Creatinine Clearance 56 mL/min (70-130); Calcium 7.3 mg/dL (7.8-10.44); Carbon Dioxide 22 mmol/L (23-31); Chloride 118 mmol/L (98-107); Estimated GFR-MDRD Greater than 90; Glucose 195 mg/dL (83-110); Potassium 3.9 mmol/L (3.5-5.1); Sodium 145 mmol/L (136-145)
[2017-10-31] MEDS: Piperacillin/Tazobactam 2.25 GM in Sodium Chloride 0.9% 100 ML IVPB SCH ×3 (05:18→23:46)
[2017-10-31] MEDS: Levothyroxine Sodium 100 MCG TAB PO SCH (05:19)
[2017-10-31] MEDS: D5 1/2 NS w/20 mEq KCL 1,000 ML IV SCH ×2 (05:19→18:46)
[2017-10-31] MEDS: Insulin Regular 300 UNITS/3 ML VIAL SC PRN ×2 (05:42→17:34)
--- NOTE | 2017-10-31 08:33 | PRG ---
DATE OF SERVICE: 10/31/2017 SUBJECTIVE: The patient is awake, but he is Dominican speaking. There is no family here at bedside. He has got IV fluids on. PHYSICAL EXAMINATION: VITAL SIGNS: Blood pressure is 135/60, pulse 60, respirations 18, he is afebrile. NECK: Supple, no JVP or carotid bruit. Carotids had good upstroke, no thyromegaly. CARDIOVASCULAR: Regular rate and rhythm. CHEST: Upper lobe is clear to auscultation and percussion. ABDOMEN: Soft, nontender, normal bowel sounds. There is no organomegaly. EXTREMITIES: No change. LABORATORY DATA: There is no labs in the chart. ASSESSMENT: 1. Sepsis, resolving. 2. Encephalopathy, resolving. 3. Dementia. 4. Hypokalemia, improved. 5. Dysphagia. PLAN: The patient was able to swallow his night meds crushed in pudding with cues. There is already consulted in place for exterminator care. However, the family does not want Lampstand. I will continu e all efforts now and transfer when we have a room.
[2017-10-31] MEDS: cloNIDine 0.2 MG TAB PO SCH (08:50)
[2017-10-31] MEDS: Dutasteride 0.5 MG CAP PO SCH (08:50)
[2017-10-31] MEDS: Clopidogrel Bisulfate 75 MG TAB PO SCH (08:50)
[2017-10-31] MEDS: predniSONE 20 MG TAB PO SCH (08:51)
[2017-10-31] MEDS: Atorvastatin Calcium 40 MG TAB PO SCH (20:17)
[2017-11-01] MEDS: Vancomycin HCl 500 MG in Sodium Chloride 0.9% 100 ML IVPB SCH ×2 (01:46→13:27)
[2017-11-01] MEDS: D5 1/2 NS w/20 mEq KCL 1,000 ML IV SCH ×2 (02:20→08:44)
[2017-11-01] MEDS: Piperacillin/Tazobactam 2.25 GM in Sodium Chloride 0.9% 100 ML IVPB SCH ×2 (06:25→13:31)
[2017-11-01] MEDS: Levothyroxine Sodium 100 MCG TAB PO SCH (06:25)
[2017-11-01] MEDS: Clopidogrel Bisulfate 75 MG TAB PO SCH (08:36)
[2017-11-01] MEDS: predniSONE 20 MG TAB PO SCH (08:36)
[2017-11-01] MEDS: Dutasteride 0.5 MG CAP PO SCH (08:36)
[2017-11-01] MEDS: cloNIDine 0.2 MG TAB PO SCH (08:37)
[2017-11-01 08:59] VITALS: BP 156/67; TEMP 97.8
[2017-11-01] MEDS: Insulin Regular 300 UNITS/3 ML VIAL SC PRN (12:37)
[2017-11-01 13:06] LABS: Vancomycin, Trough 21.2 ug/mL
[2017-11-01] MEDS ORDERED: Clopidogrel Bisulfate 75 MG TAB ONE (13:28)
[2017-11-01] MEDS ORDERED: Vancomycin HCl 750 MG in Sodium Chloride 0.9% 250 ML 250 ML IVPB SCH (14:00)
--- NOTE | 2017-11-04 12:55 | DIS ---
DATE OF ADMISSION: 10/26/2017 DATE OF DISCHARGE: 11/01/2017 CHIEF COMPLAINT ON ADMISSION: Sepsis with encephalopathy, dementia, and dehydration. History and physical have previously been dictated. HOSPITAL COURSE: The patient was placed in the intermediate critical care unit bed where IV fluids were immediately begun and IV antibiotics provided and supportive care provided. Dr. Wan saw this patient in consultation and agreed with the gentle rehydration and empiric antibiotics. The patient was found in the first 24 hours to be responsive to such measures from a respiratory standpoint. Breathes comfortably and was stable. Over the next 24 hours, the patient continued to improve, being awake, however, he was confused. He failed a swallow evaluation and was not able to have food given to him orally. His dehydration improved significantly as did the urosepsis. His dementia was stable. His acute renal injury also improved over the several days as rehydration allowed lowering of his BUN and creatinine. We are still awaiting cultures on that day to direct his antibiotic care. The family was not available that day to discuss how they wish to continue with nutrition versus or to feed oral if they were wanting comfort measures only. By 2017, he arouses, alert but was confused. Vital signs were stable. His cultures have grown out Staph. His encephalopathy actually improved, but the dementia persisted. He was hyperkalemic and so that was replaced. Again, the family wanted needed to be present and had not decided whether to give pleasure feeding or PEG placement. By 10/31/2017, the patient had been demonstrating some ability to swallow his night meds with pudding and the family does not want to go to [facility], so the efforts were now being made to transfer him to a new location. They did wish to continue pleasure feeding, knowing that he was at very much increased risk of aspiration, but did not want a PEG placed. By the day of discharge on 11/01/2017, he was arousable with unintelligible sounds. Vital signs stable. Blood sugars were good. Sepsis was resolving and dementia persisting. He was discharged with known dysphagia. The family wants him to be a DNR with pleasure feeding. [facility] will be contacted concerning his care. He will be discharged with Ceclor 250 mg t.i.d. for 7 more days. Time requiired to review chart, examine patient ,discuss discharge plans with family including answering all their questions and prepare for discharge and dictate the discharge was 45 minutes. DISCHARGE DIAGNOSES: 1. Urosepsis. 2. Metabolic encephalopathy. 3. Severe dehydration. 4. Acute kidney injury, resolved with hydration. 5. Peripheral vascular disease, status post recent procedure. He was transferred to the [facility] in stable condition and follow up will be as an outpatient from there. MONI
--- NOTE | 2017-11-09 13:11 | EKG ---
Test Reason : Blood Pressure : / mmHG Vent. Rate : 060 BPM Atrial Rate : 060 BPM P-R Int : 202 ms QRS Dur : 112 ms QT Int : 468 ms P-R-T Axes : 016 -20 077 degrees QTc Int : 468 ms Atrial-paced rhythm Anteroseptal infarct , age undetermined Abnormal ECG Confirmed by JUAN CARLOS RANDHAWA ([id number]), editor magazine ARNOLD CALDWELL ([id number]) on 11/09/2017 1:11:35 PM Referred By: Confirmed By:JUAN CARLOS RANDHAWA
== END 2017-11-01 16:12 | DRG 871 ==
LOC: ERS 17:11 → 2NO 19:45 → CCU 10-27 14:10 → IMCU/EMU 10-27 19:45 → T4-A 10-28 14:10
PROVIDERS: ADMIT Specialist; ATTEND Specialist
DX: A41.9 Sepsis, unspecified organism (principal); G93.41 Metabolic encephalopathy; N17.9 Acute kidney failure, unspecified; I50.32 Chronic diastolic (congestive) heart failure; R64 Cachexia; Z68.1 Body mass index [BMI] 19.9 or less, adult; R13.10 Dysphagia, unspecified; I11.0 Hypertensive heart disease with heart failure; E11.51 Type 2 diabetes mellitus with diabetic peripheral angiopathy without gangrene; E11.9 Type 2 diabetes mellitus without complications; E86.0 Dehydration; R65.20 Severe sepsis without septic shock; I35.0 Nonrheumatic aortic (valve) stenosis; E78.5 Hyperlipidemia, unspecified; E03.9 Hypothyroidism, unspecified; F32.9 Major depressive disorder, single episode, unspecified; R19.7 Diarrhea, unspecified; F03.90 Unspecified dementia, unspecified severity, without behavioral disturbance, psychotic disturbance, mood disturbance, and anxiety; E87.6 Hypokalemia; Z66 Do not resuscitate; Z79.84 Long term (current) use of oral hypoglycemic drugs; Z79.02 Long term (current) use of antithrombotics/antiplatelets; Z79.82 Long term (current) use of aspirin; Z79.899 Other long term (current) drug therapy; Z89.612 Acquired absence of left leg above knee; Z95.0 Presence of cardiac pacemaker
CPT/HCPCS: 36415; 36416; 51701; 71045; 80048; 80053; 80061; 80202; 81003; 81015; 82553; 82607; 82728; 82746; 82805; 83036; 83540; 83550; 83605; 83630; 83690; 83880; 84443; 84484; 85025; 87040; 87070; 87077; 87186; 87205; 87324; 87449; 93005; 96361; 96374; A4216; G8978-GP-CM; G8979-GP-CL; G8996-GN-CN; G8997-GN-CM; J0692; J0696; J2543; J3370; J7050; J7506